=== PATIENT | male | born 1975 | race Caucasian/White ===

== ENCOUNTER 2020-12-21 14:58 | Outpatient (REF) | payer BC, SELFPAY ==
--- NOTE | ~2020-12-21 | XR_ITS ---
EXAMINATION: XR LUMBOSACRAL SPINE CLINICAL INFORMATION: Sciatica. COMPARISON: CT abdomen/pelvis dated 11/22/2018 TECHNIQUE: Three views of the lumbosacral spine. FINDINGS: Normal vertebral body alignment. The lumbar lordosis is maintained. No acute fracture or subluxation. No loss of vertebral body height. Mild loss of intervertebral disc height with small anterior endplate osteophytes at L5-S1. Mild bilateral facet arthropathy. Findings are slightly progressed when compared to the prior CT. No lytic or blastic osseous lesion. XR/XR lumbar spine 2-3V IMPRESSION: Degenerative disc disease at L5-S1 with bilateral facet arthropathy, slightly progressed when compared to the CT from 2019.
== END 2020-12-21 14:59 | disposition home or self-care (01) ==
LOC: HO.HMGCX 14:58
PROVIDERS: PCP Internal Medicine; Visit Provider Internal Medicine
DX: M54.30 Sciatica, unspecified side (principal)
CPT/HCPCS: 72100

== ENCOUNTER 2021-05-08 16:08 | Outpatient (REF) | payer BC, SELFPAY ==
--- NOTE | ~2021-05-08 | XR_ITS ---
EXAMINATION: XR FOOT, RIGHT CLINICAL INFORMATION: Pain right foot COMPARISON: None TECHNIQUE: AP, lateral, and oblique views of the right foot. FINDINGS: No radiographic evidence of acute fracture or subluxation. No radiopaque foreign body. No ankle joint effusion. Calcaneal spurs at the insertion of the Achilles tendon and plantar fascia. XR/XR foot RT min 3V IMPRESSION: Calcaneal spurs.
--- NOTE | ~2021-05-08 | XR_ITS ---
EXAMINATION: XR SHOULDER, LEFT CLINICAL INFORMATION: Pain COMPARISON: None TECHNIQUE: 3 views of the left shoulder. FINDINGS: No radiographic evidence of acute fracture or subluxation. Narrowing of the acromioclavicular joint. Tiny calcifications at the greater tuberosity. XR/XR shoulder LT min 2V IMPRESSION: 1. No radiographic evidence of acute fracture subluxation. 2. Tiny calcium density at the greater tuberosity suggests biceps tendinitis. 3. Mild degenerative change of acromioclavicular joint.
--- NOTE | ~2021-05-08 | XR_ITS ---
EXAMINATION: XR SHOULDER, RIGHT CLINICAL INFORMATION: Right shoulder pain COMPARISON: None TECHNIQUE: AP external rotation, Grashey, scapular Y, and axillary views of the right shoulder. FINDINGS: Narrowing of the acromioclavicular joint. No radiographic evidence of acute fracture or subluxation. Tiny calcification at the greater tuberosity. XR/XR shoulder RT min 2V IMPRESSION: 1. No radiographic evidence of acute fracture or subluxation. 2. Tiny calcium density at the greater tuberosity suggests biceps tendinitis. 3. Mild degenerative changes of the acromioclavicular joint.
== END 2021-05-08 16:09 | disposition home or self-care (01) ==
LOC: HO.HMGCX 16:08
PROVIDERS: PCP Internal Medicine; Visit Provider Internal Medicine
DX: M25.511 Pain in right shoulder (principal); M25.512 Pain in left shoulder; M79.671 Pain in right foot
CPT/HCPCS: 73030; 73630

== ENCOUNTER 2021-05-22 14:31 | Outpatient (REF) | payer BC, SELFPAY ==
--- NOTE | ~2021-05-22 | XR_ITS ---
EXAMINATION: XR CHEST CLINICAL INFORMATION: Acute bronchitis COMPARISON: Previous chest x-rays most recent November [address] January 2008 TECHNIQUE: 2 views of the chest were obtained. FINDINGS: The cardiac and mediastinal contours are normal. There is question of a central right upper lung nodule measuring 5 mm versus a vessel. This is seen in between the right posterior 6th and 7th ribs. The lungs are otherwise clear. There is no pleural effusion or pneumothorax. Bony structures are unremarkable. XR/XR chest 2V IMPRESSION: No evidence for acute disease in the chest. 5 mm nodular density in the central right upper lung, question representing a vessel versus a pulmonary nodule.
[2021-05-22 15:09] LABS: Binax Now Covid-19 Ag Positive (Negative)
[2021-05-22 15:10] LABS: Binax Internal Control QC Valid
== END 2021-05-22 14:32 | disposition home or self-care (01) ==
LOC: HO.HMGCX 14:31
PROVIDERS: PCP Internal Medicine; Visit Provider Internal Medicine
DX: J20.9 Acute bronchitis, unspecified (principal); J06.9 Acute upper respiratory infection, unspecified
CPT/HCPCS: 71046

== ENCOUNTER → 2021-07-04 14:55 | Outpatient (BNVA) | payer BC, SELFPAY | PROVIDERS: PCP Internal Medicine; Visit Provider Physician Assistant | DX: M75.21 Bicipital tendinitis, right shoulder (principal); M75.22 Bicipital tendinitis, left shoulder | CPT/HCPCS: 20610; 99212; J1040 ==

== ENCOUNTER 2021-11-01 07:32 | Outpatient (REF) | payer BC, SELFPAY ==
[2021-11-01 11:20] LABS: Hematocrit 39.1 % (42.0-52.0); Hemoglobin 13.6 g/dl (14.0-18.0); Mean Corpuscular HGB Conc 34.8 g/dl (31.0-36.0); Mean Corpuscular Hemoglobin 30.7 pg (27.0-33.0); Mean Corpuscular Volume 88.3 fL (80.0-98.0); Mean Platelet Volume 10.6 fL (9.4-12.4); Platelet Count 282 X10*3/uL (160-400); Red Blood Count 4.43 X10*6/uL (4.60-5.80); Red Cell Distribution Width 12.4 % (11.0-16.0); White Blood Count 6.9 X10*3/uL (4.8-10.8)
[2021-11-01 11:38] LABS: Alanine Aminotransferase 39 U/L (0-40); Albumin Level 4.5 g/dL (3.5-5.0); Alkaline Phosphatase 83 U/L (39-117); Anion Gap 12 (12-20); Aspartate Amino Transferase 25 U/L (5-37); Bilirubin Total 0.6 mg/dL (0.0-1.0); Blood Urea Nitrogen 14 mg/dL (9-16); Calcium 9.1 mg/dL (8.4-10.2); Carbon Dioxide 24 mmol/L (22-29); Chloride 107 mmol/L (96-108); Cholesterol 208 mg/dL; Estimated Glomerular Filt Rate 56; Glucose Fasting 119 mg/dL (60-99); HDL Cholesterol 41 mg/dL; LDL Cholesterol Calculated 139 mg/dl; Potassium 3.9 mmol/L (3.3-5.1); Sodium 139 mmol/L (135-145); Total Protein 7.3 g/dL (6.5-8.0); Triglycerides 144 mg/dL
[2021-11-01 12:02] LABS: Estimated Average Glucose 105 mg/dL; Hemoglobin A1c % 5.3 %
== END 2021-11-01 07:33 | disposition home or self-care (01) ==
LOC: HO.HMGCLDS 07:32
PROVIDERS: Visit Provider Internal Medicine
DX: Z00.00 Encounter for general adult medical examination without abnormal findings (principal); R73.01 Impaired fasting glucose
CPT/HCPCS: 36415; 80053; 80061; 83036; 85027

== ENCOUNTER 2021-11-19 20:27 | Emergency (ER) | payer BC, SELFPAY ==
--- NOTE | ~2021-11-19 | CT_ITS ---
EXAMINATION: CT ABDOMEN AND PELVIS WITHOUT CONTRAST CLINICAL INFORMATION: Abdominal pain, question diverticulitis COMPARISON: 11/22/2018 TECHNIQUE: Multidetector volumetric imaging was performed from the superior aspect of the liver through the pubic symphysis. Sagittal and coronal reformatted images were obtained on the technologist's workstation. This CT examination was performed using dose optimization techniques as appropriate, variously including the following: *Automated exposure control *Adjustment of mA and/or kV according to patient size (this includes techniques or standardized protocols for targeted exams where dose is matched to indication/reason for exam; i.e. extremities or head) *Use of iterative reconstruction technique DLP: 1162 mGy-cm FINDINGS: LUNG BASES: The visualized lung bases are unremarkable. LIVER, GALLBLADDER, AND BILIARY TREE: The liver is normal in size, shape, and attenuation. No focal hepatic lesion or biliary ductal dilatation is present. The gallbladder appears partially contracted. PANCREAS: Unremarkable. SPLEEN: Unremarkable. ADRENAL GLANDS: Unremarkable. KIDNEYS AND URETERS: The kidneys are normal in size, shape, and attenuation. No hydronephrosis, hydroureter, or calculi seen. BLADDER: Unremarkable. GASTROINTESTINAL TRACT: Small hiatal hernia is noted. No evidence of bowel obstruction. There is mild stranding adjacent to diverticula in the sigmoid colon of the central pelvis, suspicious for mild diverticulitis. No pericolonic abscess is identified. The appendix is unremarkable. No free fluid or free air is seen. ABDOMINAL WALL: No significant hernia is appreciated. LYMPH NODES: Normal. VASCULAR: There is mild scattered atherosclerotic calcification. PELVIC VISCERA: Unremarkable. OSSEOUS STRUCTURES: Degenerative changes are noted in the lower thoracic spine. CT/CT abdomen pelvis wo con IMPRESSION: Mild sigmoid colon diverticulitis. No pericolonic abscess or free air identified.
[2021-11-19 22:04] VITALS: BP 108/87; PULSE 83; RESP 20; TEMP 37.1; O2SAT 97; BMI 41.4
[2021-11-19] MEDS: Ondansetron ODT 4 MG TAB.RAPDIS TRANSLINGU (22:08)
[2021-11-19 22:38] LABS: MANUAL DIFF FLAG NO
[2021-11-19 22:40] LABS: Basophils Absolute Auto 0.1 X10*3/uL (0.0-0.2); Basophils Percent Auto 0.8 % (0-2); Eosinophils Absolute Auto 0.3 X10*3/uL (0.0-0.4); Eosinophils Percent Auto 2.9 % (0-4); Hematocrit 39.2 % (42.0-52.0); Hemoglobin 13.9 g/dl (14.0-18.0); Imm Gran Abs Auto 0.05 X10*3/uL (0.00-0.03); Imm Gran Pct Auto 0.5 % (0.0-0.4); Lymphocytes Absolute Auto 2.7 X10*3/uL (1.2-4.9); Lymphocytes Percent Auto 24.1 % (20-40); Mean Corpuscular HGB Conc 35.5 g/dl (31.0-36.0); Mean Corpuscular Hemoglobin 30.5 pg (27.0-33.0); Mean Platelet Volume 9.5 fL (9.4-12.4); Monocytes Percent Auto 8.6 % (2-11); Neutrophils Percent Auto 63.1 % (45-73); Platelet Count 270 X10*3/uL (160-400); Red Blood Count 4.56 X10*6/uL (4.60-5.80); Red Cell Distribution Width 12.4 % (11.0-16.0); White Blood Count 11.1 X10*3/uL (4.8-10.8)
[2021-11-19 22:55] LABS: Alanine Aminotransferase 40 U/L (0-40); Albumin Level 4.6 g/dL (3.5-5.0); Alkaline Phosphatase 87 U/L (39-117); Anion Gap 12 (12-20); Aspartate Amino Transferase 29 U/L (5-37); Bilirubin Total 0.7 mg/dL (0.0-1.0); Blood Urea Nitrogen 10 mg/dL (9-16); Calcium 9.7 mg/dL (8.4-10.2); Carbon Dioxide 29 mmol/L (22-29); Chloride 103 mmol/L (96-108); Creatinine Clr Calc Pharmacy 88.7; Estimated Glomerular Filt Rate 54; Glucose Random 106 mg/dL (60-115); Potassium 4.2 mmol/L (3.3-5.1); Sodium 140 mmol/L (135-145); Total Protein 7.4 g/dL (6.5-8.0)
[2021-11-20 01:25] LABS: Appearance Urine CLEAR; Color Urine YELLOW; Glucose Urine UA NEG (NEG); Leukocyte Esterase Urine NEG (NEG); Nitrite Urine NEG (NEG); PH 6.5 (5.0-8.0); Urine Blood NEG (NEG); Urine Ketones NEG (NEG); Urine Protein NEG (NEG-TRACE)
--- NOTE | 2021-11-20 02:05 | ED.ABDPAIN ---
HPI - Abdominal Pain General Chief Complaint: Abdominal Pain Stated Complaint: diverticulitis attack Time Seen by Provider: 11/20/21 00:36 Source: patient Mode of arrival: ambulatory Limitations: no limitations History of Present Illness HPI narrative: 46-year-old male came in for evaluation of abdominal pain. Abdominal pain started 1 day ago, pain is localized to the left lower quadrant area, feels like heaviness in the rectum area, feels the urge of micturition without being able to go. Pain described as cramps that is intermittent, last for about few minutes then go away, with no radiation, pain is associated with nausea, no fever or chills. No relieving factor, no aggravating factors. Patient had similar pain in the past when he had an episode of acute diverticulitis. Past surgical history is significant for hernia repair he when he was 6-month-old. Related Data Previous Rx's Medication Instructions Recorded albuterol sulfate 90 mcg/actuation 2 puff inhalation Q6H PRN 11/05/21 aerosol inhaler shortness of breath or wheezing #8.5 grams mometasone-formoterol HFA 200 2 puff inhalation BID #8.8 grams 11/05/21 mcg-5 mcg/actuation aerosol inhaler (Dulera) ciprofloxacin HCl 500 mg tablet 500 mg PO BID #20 tabs 11/20/21 (Cipro) ibuprofen 800 mg tablet 800 mg PO Q8H PRN pain #20 tabs 11/20/21 metronidazole 500 mg tablet 500 mg PO BID 10 days #20 tabs 11/20/21 Allergies Allergy/AdvReac Type Severity Reaction Status Date / Time levofloxacin [From LEVAQUIN] Allergy Intermediate NERVE PAIN Verified 11/19/21 22:03 Review of Systems Review of Systems All other systems are reviewed and are negative Constitutional: Reports as per HPI and Reports no additional constitutional complaints Eyes: Reports as per HPI and Reports no additional eye complaints Reports system reviewed and no additional complaints, except as documented Cardiovascular: Reports as per HPI and Reports no additional cardiovascular complaints Respiratory: Reports as per HPI and Reports no additional respiratory complaints Gastrointestinal: Reports as per HPI and Reports no additional gastrointestinal complaints Genitourinary: Reports no additional female genitourinary complaints Musculoskeletal: Reports no additional musculoskeletal complaints Skin/Breast: Reports system reviewed and no additional complaints, except as docu Psychiatric: Reports no additional psychiatric complaints Endocrine: Reports no additional endocrine complaints Hematologic/Lymphatic: Reports no additional hematologic/lymphatic complaints Allergic/Immunologic: Reports no additional allergic/immunologic complaints Reports system reviewed and no additional complaints, except as documented and Reports Abnormal speech present [facility] Past Medical History Medical History Annual physical exam Impaired fasting blood sugar Obesity Vasectomy evaluation Surgical History No pertinent past surgical history Family History Family History Father HTN (hypertension) Mother No problems noted. Other Substance use disorder Social History Social History Housing: House Patient Tobacco Use Status: Former Tobacco user Quit Date: 20 plus years ago Years Smoked: 2 e-Cigarette/Vaping Use: Never Used Advance Directives: No Advance Directives Information Provided: No Current occupational status: employed Cognitive needs: No Hearing needs: No Vision needs: Yes Physical Exam ED Vital Signs: Vital Signs - 24 hr 11/19/21 22:04 Temperature 98.7 F Pulse Rate 83 Respiratory Rate 20 Blood Pressure 108/87 Pulse Oximetry 97 Oxygen Delivery Method Room Air BMI result Body Mass Index 41.4 Vital signs have been reviewed as appeared to be correct. Blood pressure normal. Heart rate normal. Respiration rate normal. Temperature normal. Oxygen saturation normal. Appearance: Alert. Oriented X3. No acute distress. Head: Normal external exam. Normocephalic. Atraumatic. No Damian signs noted. No raccoon eyes noted Eyes: PERRLA. EOMI. Conjunctiva and sclera normal. Eyelids normal. ENT: TM's Normal. Pharynx normal. Uvula midline. Moist mucous membranes. No trismus noted. No drooling noted. No muffled voice noted. Neck: Normal inspection. Neck supple. FROM. No adenopathy. Thyroid Normal. No meningeal signs. No neck mass noted. CVS: Normal heart rate and rhythm. Heart sound normal. No murmurs noted. Pulses normal throughout. Respiratory: No respiratory distress. Painless inspiration. Breath sounds normal. No wheezes/rales/rhonchi noted. Chest nontender. No accessory muscle usage noted or decreased air movement noted. Abdomen: Soft, mild left lower quadrant tenderness, no rebound tenderness, no guarding.. Bowel sounds normal in all 4 quadrants. No distention noted. No organomegaly noted. No visible injury noted. Back: No CVA tenderness. Full range of motion noted. Skin: Skin warm and dry. Normal skin color. Normal skin turgor. No rashes/lesions/lacerations noted. Extremities: No lower extremity edema. Extremities exhibit normal range of motion. Extremities nontender. Neuro: Oriented X 3. Cranial nerve exam: II-XII are grossly intact No motor deficit. No sensory deficit. Reflexes normal. Course Course Course Narrative: 46 years old male with history of diverticular disease came in with left lower quadrant tenderness, physical exam/CT consistent with simple noncomplicated acute diverticulitis. Will discharge the patient on Cipro/Flagyl/NSAIDs/follow-up with boilers inspector for possible outpatient endoscopy/with instructions to return if symptoms is worsening. MDM - Abdominal Pain Medical Records Attestation: I reviewed the patient's medical records. Lab Data Attestation: I reviewed the patient's lab results. Result diagrams: 11/19/21 22:30 11/19/21 22:30 Labs: Lab Results 11/19/21 11/19/21 11/20/21 Range/Units 22:30 22:30 01:18 WBC 11.1 H (4.8-10.8) X10*3/uL RBC 4.56 L (4.60-5.80) X10*6/uL Hgb 13.9 L (14.0-18.0) g/dl Hct 39.2 L (42.0-52.0) % MCV 86.0 (80.0-98.0) fL MCH 30.5 (27.0-33.0) pg MCHC 35.5 (31.0-36.0) g/dl RDW 12.4 (11.0-16.0) % Plt Count 270 (160-400) X10*3/uL MPV 9.5 (9.4-12.4) fL Immature Gran % (Auto) 0.5 H (0.0-0.4) % Neut % (Auto) 63.1 (45-73) % Lymph % (Auto) 24.1 (20-40) % [place] % (Auto) 8.6 (2-11) % Eos % (Auto) 2.9 (0-4) % Baso % (Auto) 0.8 (0-2) % Lymph # (Auto) 2.7 (1.2-4.9) X10*3/uL [place] # (Auto) 1.0 (0.1-1.2) X10*3/uL Eos # (Auto) 0.3 (0.0-0.4) X10*3/uL Baso # (Auto) 0.1 (0.0-0.2) X10*3/uL Abs Immat Gran (auto) 0.05 H (0.00-0.03) X10*3/uL Absolute Neuts (auto) 7.0 (2.0-8.3) x10*3/uL Absolute Nucleated RBC 0.000 (0.0-0.012) X10*3/uL Nucleated RBC % (auto) 0.0 (0.0-0.2) /100WBC Sodium 140 (135-145) mmol/L Potassium 4.2 (3.3-5.1) mmol/L Chloride 103 (96-108) mmol/L Carbon Dioxide 29 (22-29) mmol/L Anion Gap 12 (12-20) BUN 10 (9-16) mg/dL Creatinine 1.40 (0.5-1.4) mg/dL Estim Creat Clear Calc 88.7 Estimated GFR 54 Random Glucose 106 (60-115) mg/dL Calcium 9.7 D (8.4-10.2) mg/dL Total Bilirubin 0.7 (0.0-1.0) mg/dL AST 29 (5-37) U/L ALT 40 (0-40) U/L Alkaline Phosphatase 87 (39-117) U/L Total Protein 7.4 (6.5-8.0) g/dL Albumin 4.6 (3.5-5.0) g/dL Urine Color YELLOW Urine Appearance CLEAR Urine pH 6.5 (5.0-8.0) Ur Specific [place] 1.020 (1.005-1.025) Urine Protein NEG (NEG-TRACE) MG/DL Urine Glucose (UA) NEG (NEG) MG/DL Urine Ketones NEG (NEG) MG/DL Urine Blood NEG (NEG) Urine Nitrite NEG (NEG) Ur Leukocyte Esterase NEG (NEG) Imaging Data Abdomen and pelvis CT: Attestation: I personally reviewed and interpreted this imaging study as follows: Radiologist's impression: Mild sigmoid colon diverticulitis. No pericolonic abscess or free air identified.? Discharge Plan Discharge Clinical Impression: Diverticulitis Patient Disposition: Home, Self-Care Instructions: Diverticulitis (ED), Diverticulitis Diet (ED) Prescriptions: New ciprofloxacin HCl [Cipro] 500 mg tablet 500 mg PO BID Qty: 20 0RF metronidazole 500 mg tablet 500 mg PO BID 10 Days Qty: 20 0RF ibuprofen 800 mg tablet 800 mg PO Q8H PRN (Reason: pain) Qty: 20 0RF No Action Dulera 200-5 mcg/actuation HFA aerosol inhaler 2 puff inhalation BID Qty: 8.8 4RF albuterol sulfate 90 mcg/actuation HFA aerosol inhaler 2 puff inhalation Q6H PRN (Reason: shortness of breath or wheezing) Qty: 8.5 3RF Referrals: Payton Sanz MD [Physician] -
[2021-11-20] MEDS: Ibuprofen 800 MG TABLET PO (02:36)
[2021-11-20] MEDS: Ondansetron ODT 4 MG TAB.RAPDIS TRANSLINGU (02:36)
[2021-11-20] MEDS: metroNIDAZOLE 500 MG TABLET PO (02:37)
--- NOTE | 2021-11-20 02:38 | PC.NURSE ---
medicated per provider order.
== END 2021-11-20 02:41 | disposition home or self-care (01) ==
PROVIDERS: Emergency Provider Emergency Medicine
DX: K57.32 Diverticulitis of large intestine without perforation or abscess without bleeding (principal); E66.9 Obesity, unspecified; Z68.41 Body mass index [BMI] 40.0-44.9, adult; Z87.891 Personal history of nicotine dependence
CPT/HCPCS: 36415; 74176; 80053; 81003; 85025; 99283; 99284

== ENCOUNTER 2022-02-18 03:36 | Emergency (ER) | payer BC, SELFPAY ==
[2022-02-18 03:49] VITALS: BP 135/88; PULSE 93; RESP 16; TEMP 36.3; O2SAT 97; BMI 40.1
[2022-02-18 04:07] LABS: MANUAL DIFF FLAG NO
[2022-02-18 04:12] LABS: Basophils Absolute Auto 0.1 X10*3/uL (0.0-0.2); Basophils Percent Auto 0.8 % (0-2); Eosinophils Absolute Auto 0.3 X10*3/uL (0.0-0.4); Eosinophils Percent Auto 3.3 % (0-4); Hematocrit 38.8 % (42.0-52.0); Hemoglobin 13.9 g/dl (14.0-18.0); Imm Gran Abs Auto 0.07 X10*3/uL (0.00-0.03); Imm Gran Pct Auto 0.7 % (0.0-0.4); Lymphocytes Absolute Auto 2.4 X10*3/uL (1.2-4.9); Lymphocytes Percent Auto 24.8 % (20-40); Mean Corpuscular HGB Conc 35.8 g/dl (31.0-36.0); Mean Corpuscular Hemoglobin 31.4 pg (27.0-33.0); Mean Corpuscular Volume 87.6 fL (80.0-98.0); Mean Platelet Volume 9.5 fL (9.4-12.4); Monocytes Percent Auto 10.2 % (2-11); Neutrophils Absolute Auto 5.9 x10*3/uL (2.0-8.3); Neutrophils Percent Auto 60.2 % (45-73); Platelet Count 285 X10*3/uL (160-400); Red Blood Count 4.43 X10*6/uL (4.60-5.80); Red Cell Distribution Width 12.3 % (11.0-16.0); White Blood Count 9.7 X10*3/uL (4.8-10.8)
[2022-02-18 04:26] LABS: Anion Gap 17 (12-20); Blood Urea Nitrogen 11 mg/dL (9-16); Calcium 9.3 mg/dL (8.4-10.2); Carbon Dioxide 24 mmol/L (22-29); Chloride 104 mmol/L (96-108); Creatinine Clr Calc Pharmacy 92.2; Estimated Glomerular Filt Rate 58; Glucose Random 124 mg/dL (60-115); Potassium 4.4 mmol/L (3.3-5.1); Sodium 141 mmol/L (135-145)
[2022-02-18 04:34] LABS: Appearance Urine Clear; Color Urine Yellow; Glucose Urine UA Negative (Negative); Leukocyte Esterase Urine Negative (Negative); Nitrite Urine Negative (Negative); PH 5.5 (5.0-9.0); Urine Blood Negative (Negative); Urine Ketones Negative (Negative); Urine Protein Negative (Neg-Trace)
[2022-02-18 06:48] VITALS: BP 121/80; PULSE 85; RESP 16; TEMP 36.8; O2SAT 94
--- NOTE | 2022-02-18 06:48 | PC.NURSE ---
Pt. on hall monitor at this time. Awaiting MD assessment.
[2022-02-18 07:39] VITALS: BP 121/69; PULSE 80; RESP 16; TEMP 36.8; O2SAT 97
--- NOTE | 2022-02-18 07:48 | PC.NURSE ---
pt is a/o x 4 no sob/rony noted speaks in full sentences. lungs - bud upper lobes - diminished, bud lower lobes - cta. heart sounds regular, abd obese soft, non-tender, c/o 8/10 rlq abd pain. no edema noted to lower ext. pt aware of plan.
--- NOTE | 2022-02-18 08:05 | ED.ABDPAIN ---
HPI - Abdominal Pain General Chief Complaint: Abdominal Pain Stated Complaint: Diverticulitis flare up Time Seen by Provider: 02/18/22 07:50 Source: patient and family Mode of arrival: ambulatory History of Present Illness HPI narrative: 47-year-old male with a past medical history of diverticulitis presents to the emergency department today with abdominal pain. The patient states this started last night, and has become more severe over the last 12-18 hours. It is located mostly in the left lower quadrant, with minimal radiation to the suprapubic area at times. MD elicited complaint: abdominal pain Pertinent past history: diverticulitis Onset (ago): day(s) (1) Pain Consistency: constant Location: LLQ Severity: moderate Quality: cramping and aching Radiation: suprapubic Migration to: no migration Exacerbating factors: nothing Relieving factors: nothing Context: history of similar episodes Associated symptoms: constipation Related Data Previous Rx's Medication Instructions Recorded albuterol sulfate 90 mcg/actuation 2 puff inhalation Q6H PRN 11/05/21 aerosol inhaler shortness of breath or wheezing #8.5 grams mometasone-formoterol HFA 200 2 puff inhalation BID #8.8 grams 11/05/21 mcg-5 mcg/actuation aerosol inhaler (Dulera) ciprofloxacin HCl 500 mg tablet 500 mg PO BID #20 tabs 11/20/21 (Cipro) ibuprofen 800 mg tablet 800 mg PO Q8H PRN pain #20 tabs 11/20/21 metronidazole 500 mg tablet 500 mg PO BID 10 days #20 tabs 11/20/21 amoxicillin 500 mg-potassium 1 tab PO Q12H 10 days #20 tabs 02/18/22 clavulanate 125 mg tablet (Augmentin) oxycodone-acetaminophen 5 mg-325 1 - 2 tab PO Q4H PRN abdominal 02/18/22 mg tablet (Endocet) pain #10 tabs Allergies Allergy/AdvReac Type Severity Reaction Status Date / Time levofloxacin [From LEVAQUIN] Allergy Intermediate NERVE PAIN Verified 11/19/21 22:03 Review of Systems Review of Systems Yes all other systems are reviewed and are negative Constitutional: Reports chills, Denies fatigue, Denies fever(s) and Denies weakness Eyes: Reports no additional eye complaints Reports system reviewed and no additional complaints, except as documented and Denies dizziness Cardiovascular: Reports no additional cardiovascular complaints Respiratory: Reports no additional respiratory complaints Gastrointestinal: Reports abdominal pain, Denies melena, Reports constipation, Reports GI cramping, Denies diarrhea, Denies nausea and Denies vomiting Genitourinary: Denies hematuria, Denies oliguria and Denies dysuria Musculoskeletal: Reports no additional musculoskeletal complaints Skin/Breast: Reports system reviewed and no additional complaints, except as docu Denies confusion, Denies dizziness and Denies weakness Psychiatric: Reports no additional psychiatric complaints and Denies confusion Endocrine: Denies fatigue and Denies polyuria Hematologic/Lymphatic: Reports no additional hematologic/lymphatic complaints COUNTS INCLUDE 234 BEDS AT THE [facility] Past Medical History Attestation statement: The following information was validated with the patient. Source: nursing notes reviewed Medical History Annual physical exam Impaired fasting blood sugar Obesity Vasectomy evaluation Surgical History No pertinent past surgical history Family History Family History Father HTN (hypertension) Mother No problems noted. Other Substance use disorder Social History Social History Housing: House Alcohol intake: current Alcohol intake frequency: holidays/special occasions only Patient Tobacco Use Status: Former Tobacco user Quit Date: 20 plus years ago Years Smoked: 2 e-Cigarette/Vaping Use: Never Used Use of substances other than those prescribed or required for medical reasons: No Advance Directives: No Advance Directives Information Provided: Yes Current occupational status: employed Cognitive needs: No Hearing needs: No Vision needs: Yes Physical Exam ED Vital Signs: Vital Signs - 24 hr 02/18/22 03:49 02/18/22 06:48 02/18/22 07:39 Temperature 97.4 F 98.2 F 98.3 F Pulse Rate 93 85 80 Respiratory Rate 16 16 16 Blood Pressure 135/88 121/80 121/69 Pulse Oximetry 97 94 97 Oxygen Delivery Method Room Air Room Air Room Air 02/18/22 09:41 Temperature 98.6 F Pulse Rate 83 Respiratory Rate 20 Blood Pressure 121/72 Pulse Oximetry 97 Oxygen Delivery Method Room Air BMI result Body Mass Index 40.1 Const General: cooperative and in distress; No confusion or ill appearing Nutritional Appearance: obese Orientation/consciousness: patient oriented x3 and No confusion HENMT Head: Yes normal to inspection Ears: hearing grossly normal bilaterally General nose exam: Normal external nose present Face and sinus: Yes normal facial exam Mouth: Normal oral and palatal mucosa present Eyes Sclerae: sclerae normal Corneas: corneas normal Pupils: Equal, round and reactive pupils present Neck Neck: Yes normal visual inspection and Yes full ROM Chest Chest palpation & inspection: normal inspection of the chest and no tenderness Resp Effort & Inspection: normal respiratory effort, no cough and no respiratory distress Cardio Rate: regular rate Rhythm: regular rhythm GI Inspection: Yes obesity Palpation (GI): Soft to palpation and Tenderness to palpation present (GI) Percussion: Yes normal to percussion Auscultation: normal bowel sounds General: Yes no CVA tenderness Back/Spine/Pelvis Back: no CVA tenderness Cervical Spine: cervical ROM normal Skin General skin exam: no rashes or lesions noted and no jaundice Neuro General: patient oriented x3, no focal motor deficits and No confusion Cranial nerves: Yes CN's II-XII intact bilaterally and Yes Equal, round and reactive pupils present Extrem General: Yes normal to inspection and No pedal edema Psych Appearance: grossly normal Mental Status: mental status grossly normal Speech and movement: Normal speech and movement present Course Reevaluation(s) Reevaluation #1: Patient appears comfortable. States pain is significantly improved, but still present Time: 11:00 MDM - Abdominal Pain MDM Narrative Medical decision making narrative: Discussed CT versus not CT with the patient. Expressed concern over the fact that the patient has had multiple CT scans in the past. Will obtain laboratory studies and re-evaluation. If patient's labs and course are suspicious for perforation, may obtain CT Patient remains comfortable, does continue to complain about some mild abdominal pain. Laboratory studies were all reviewed, and there is no significant elevation of white count, or other lab abnormality. Vital signs remained stable and patient remains afebrile. For these reasons, and the fact that the patient states he has had 6-8 CT scans previously for this problem, CT scan of the abdomen will not be obtained at this time. The patient states that typically he is started on antibiotics and after a day or 2, begins to feel better. He will be discharged home on Augmentin and is instructed to follow-up with his primary care doctor tomorrow. Differential Diagnosis Differential diagnosis: Likely abdominal pain, acute appendicitis, bowel perforation and diverticulitis Medical Records Attestation: I reviewed the patient's medical records. Lab Data Attestation: I reviewed the patient's lab results. Lab results narrative: No significant lab abnormalities Result diagrams: 02/18/22 03:57 02/18/22 03:57 Labs: Lab Results 02/18/22 02/18/22 02/18/22 Range/Units 03:57 03:57 04:24 WBC 9.7 (4.8-10.8) X10*3/uL RBC 4.43 L (4.60-5.80) X10*6/uL Hgb 13.9 L (14.0-18.0) g/dl Hct 38.8 L (42.0-52.0) % MCV 87.6 (80.0-98.0) fL MCH 31.4 (27.0-33.0) pg MCHC 35.8 (31.0-36.0) g/dl RDW 12.3 (11.0-16.0) % Plt Count 285 (160-400) X10*3/uL MPV 9.5 (9.4-12.4) fL Immature Gran % (Auto) 0.7 H (0.0-0.4) % Neut % (Auto) 60.2 (45-73) % Lymph % (Auto) 24.8 (20-40) % Wilson % (Auto) 10.2 (2-11) % Eos % (Auto) 3.3 (0-4) % Baso % (Auto) 0.8 (0-2) % Lymph # (Auto) 2.4 (1.2-4.9) X10*3/uL Wilson # (Auto) 1.0 (0.1-1.2) X10*3/uL Eos # (Auto) 0.3 (0.0-0.4) X10*3/uL Baso # (Auto) 0.1 (0.0-0.2) X10*3/uL Abs Immat Gran (auto) 0.07 H (0.00-0.03) X10*3/uL Absolute Neuts (auto) 5.9 (2.0-8.3) x10*3/uL Absolute Nucleated RBC 0.000 (0.0-0.012) X10*3/uL Nucleated RBC % (auto) 0.0 (0.0-0.2) /100WBC Sodium 141 (135-145) mmol/L Potassium 4.4 (3.3-5.1) mmol/L Chloride 104 (96-108) mmol/L Carbon Dioxide 24 (22-29) mmol/L Anion Gap 17 (12-20) BUN 11 (9-16) mg/dL Creatinine 1.31 (0.5-1.4) mg/dL Estim Creat Clear Calc 92.2 Estimated GFR 58 Random Glucose 124 H (60-115) mg/dL Calcium 9.3 (8.4-10.2) mg/dL Total Bilirubin (0.0-1.0) mg/dL Direct Bilirubin (0.0-0.5) mg/dL AST (5-37) U/L ALT (0-40) U/L Alkaline Phosphatase (39-117) U/L Total Protein (6.5-8.0) g/dL Albumin (3.5-5.0) g/dL Urine Color Yellow Urine Appearance Clear Urine pH 5.5 (5.0-9.0) Ur Specific Coulters 1.020 (1.005-1.025) Urine Protein Negative (Neg-Trace) mg/dL Urine Glucose (UA) Negative (Negative) mg/dL Urine Ketones Negative (Negative) mg/dL Urine Blood Negative (Negative) Urine Nitrite Negative (Negative) Ur Leukocyte Esterase Negative (Negative) 02/18/22 Range/Units 08:56 WBC (4.8-10.8) X10*3/uL RBC (4.60-5.80) X10*6/uL Hgb (14.0-18.0) g/dl Hct (42.0-52.0) % MCV (80.0-98.0) fL MCH (27.0-33.0) pg MCHC (31.0-36.0) g/dl RDW (11.0-16.0) % Plt Count (160-400) X10*3/uL MPV (9.4-12.4) fL Immature Gran % (Auto) (0.0-0.4) % Neut % (Auto) (45-73) % Lymph % (Auto) (20-40) % Wilson % (Auto) (2-11) % Eos % (Auto) (0-4) % Baso % (Auto) (0-2) % Lymph # (Auto) (1.2-4.9) X10*3/uL Wilson # (Auto) (0.1-1.2) X10*3/uL Eos # (Auto) (0.0-0.4) X10*3/uL Baso # (Auto) (0.0-0.2) X10*3/uL Abs Immat Gran (auto) (0.00-0.03) X10*3/uL Absolute Neuts (auto) (2.0-8.3) x10*3/uL Absolute Nucleated RBC (0.0-0.012) X10*3/uL Nucleated RBC % (auto) (0.0-0.2) /100WBC Sodium (135-145) mmol/L Potassium (3.3-5.1) mmol/L Chloride (96-108) mmol/L Carbon Dioxide (22-29) mmol/L Anion Gap (12-20) BUN (9-16) mg/dL Creatinine (0.5-1.4) mg/dL Estim Creat Clear Calc Estimated GFR Random Glucose (60-115) mg/dL Calcium (8.4-10.2) mg/dL Total Bilirubin 0.7 (0.0-1.0) mg/dL Direct Bilirubin 0.2 (0.0-0.5) mg/dL AST 21 (5-37) U/L ALT 32 (0-40) U/L Alkaline Phosphatase 78 (39-117) U/L Total Protein 6.9 (6.5-8.0) g/dL Albumin 4.3 (3.5-5.0) g/dL Urine Color Urine Appearance Urine pH (5.0-9.0) Ur Specific Coulters (1.005-1.025) Urine Protein (Neg-Trace) mg/dL Urine Glucose (UA) (Negative) mg/dL Urine Ketones (Negative) mg/dL Urine Blood (Negative) Urine Nitrite (Negative) Ur Leukocyte Esterase (Negative) Discharge Plan Discharge Clinical Impression: Diverticulitis, Abdominal pain Patient Disposition: Home, Self-Care Instructions: Diverticulitis (ED) Prescriptions: New amoxicillin-pot clavulanate [Augmentin] 500-125 mg tablet 1 tab PO Q12H 10 Days Qty: 20 0RF oxycodone-acetaminophen [Endocet] 5-325 mg tablet 1 - 2 tab PO Q4H PRN (Reason: abdominal pain) Qty: 10 0RF Rx Instructions: Partial Fill upon patient request. No Action ciprofloxacin HCl [Cipro] 500 mg tablet 500 mg PO BID Qty: 20 0RF metronidazole 500 mg tablet 500 mg PO BID 10 Days Qty: 20 0RF ibuprofen 800 mg tablet 800 mg PO Q8H PRN (Reason: pain) Qty: 20 0RF Dulera 200-5 mcg/actuation HFA aerosol inhaler 2 puff inhalation BID Qty: 8.8 4RF albuterol sulfate 90 mcg/actuation HFA aerosol inhaler 2 puff inhalation Q6H PRN (Reason: shortness of breath or wheezing) Qty: 8.5 3RF Referrals: Heidi Galindo MD [Primary Care Provider] - 1 day
[2022-02-18] MEDS: Morphine Sulfate 4 MG/ML CARTRIDGE IVPUSH ×2 (09:14→13:25)
[2022-02-18] MEDS: Ampicillin Sodium/Sulbactam Na 3 GM in 0.9 % Sodium Chloride 100 ML IV (09:15)
[2022-02-18 09:28] LABS: Alanine Aminotransferase 32 U/L (0-40); Albumin Level 4.3 g/dL (3.5-5.0); Alkaline Phosphatase 78 U/L (39-117); Aspartate Amino Transferase 21 U/L (5-37); Bilirubin Direct 0.2 mg/dL (0.0-0.5); Bilirubin Total 0.7 mg/dL (0.0-1.0); Total Protein 6.9 g/dL (6.5-8.0)
[2022-02-18 09:41] VITALS: BP 121/72; PULSE 83; RESP 20; TEMP 37; O2SAT 97
[2022-02-18 12:34] VITALS: BP 126/68; PULSE 85; RESP 16; TEMP 36.7; O2SAT 96
[2022-02-18 13:55] VITALS: BP 129/72; PULSE 85; RESP 18; O2SAT 97
== END 2022-02-18 13:58 | disposition home or self-care (01) ==
PROVIDERS: Emergency Provider Emergency Medicine; PCP Internal Medicine
DX: K57.32 Diverticulitis of large intestine without perforation or abscess without bleeding (principal); R10.32 Left lower quadrant pain; Z79.899 Other long term (current) drug therapy; Z87.891 Personal history of nicotine dependence
CPT/HCPCS: 36415; 80048; 80076; 81003; 85025; 96365; 96375; 96376; 99284; 99285; J0295; J2270

== ENCOUNTER 2023-03-11 12:42 | Outpatient (AMB) | payer BC, SELFPAY ==
[2023-03-11 12:47] VITALS: BP 120/80; PULSE 81; O2SAT 98; BMI 40.6
--- NOTE | 2023-03-11 12:47 | A.OFFPC_ITS ---
Vital Signs 03/11/23 12:47 Height 5 ft 10 in Weight 283 lb BMI 40.6 BP 120/80 Blood Pressure Location Lt brachial Position Sitting Pulse 81 Pulse Source Pulse Oximeter Pulse Oximetry (%) 98 Oxygen Delivery Method Room Air Intake Visit Reasons: discuss medical issues Intake Note: Pt is here today for a follow up visit.Pt states that he cant sleep, and has a lot anxiety. Pt also c/o a lot of phlegm and congestion. Allergies levofloxacin [From LEVAQUIN] Allergy (Intermediate, Verified 03/11/23 12:53) NERVE PAIN Medication List - Last Reconciled 03/11/23 by Heidi Galindo MD albuterol sulfate 90 mcg/actuation 2 puffs inhalation Q6H PRN mometasone-formoterol 200-5 mcg/actuation (Dulera) 2 puffs inhalation BID tiotropium bromide 1.25 mcg/actuation (Spiriva Respimat) 2 puffs inhalation DAILY Tobacco use date assessed: 03/11/23 Dental Screening Dental Screen Date: 03/11/23 Did you have a dental visit in the last 12 months?: Yes Did you have a dental problem in the last 6 months where you did not have access to dental care?: No Was dental information given to patient?: Patient has dentist HPI discuss medical issues HPI Details Pt presents for PE. Pt is grieving her mother who in December from renal failure and infected leg ulcers at 65. Patient has been crying a lot and reports worsening of his asthma increase chest tightness and postnasal drip coughing up white phlegm for the last few weeks. Patient has been using albuterol inhaler up to 4 times a day with some relief in addition to Spiriva and Dulera. He denies seasonal allergies in the fall. [facility] Medical History Annual physical exam Impaired fasting blood sugar Obesity Vasectomy evaluation Surgical History No pertinent past surgical history Family History Father HTN (hypertension) Mother No problems noted. Other Substance use disorder Social History Housing: House Alcohol intake: current Alcohol intake frequency: holidays/special occasions only Patient Tobacco Use Status: Former Tobacco user Quit Date: 20 plus years ago Years Smoked: 2 e-Cigarette/Vaping Use: Never Used Current occupational status: employed Cognitive needs: No Hearing needs: No Vision needs: Yes Questionnaire PHQ-9 Over the last 2 weeks, how often have you been bothered by any of the following problems? 1. Little interest or pleasure in doing things: nearly every day 2. Feeling down, depressed, or hopeless: more than half the days 3. Trouble falling or staying asleep, or sleeping too much: nearly every day 4. Feeling tired or having little energy: more than half the days 5. Poor appetite or overeating: more than half the days 6. Feeling bad about yourself - or that you are a failure or have let yourself or your family down: several days 7. Trouble concentrating on things, such as reading the newspaper or watching television: more than half the days 8. Moving or speaking so slowly that other people could have noticed. Or the opposite - being so fidgety or restless that you have been moving around a lot more than usual: not at all 9. Thoughts that you would be better off or of hurting yourself in some way: not at all Total score: 15 Depression Screening Interpretation: Positive Depression Screening Done: Yes Source: Developed by Drs. Devonte Michel, Cari Clement, Troy Ram and colleagues, with an educational melanie from [employer] Thrive Questionnaire Date Thrive assessed: 03/11/23 I am a: Patient What is your living situation today?: I have a steady place to live Within the past 12 months, did the food you bought not last and you didn't have the money to get more?: Never true Within the past 12 months, did you worry whether your food would run out before you got money to buy more?: Never true Do you have trouble paying for medicines?: No Do you have trouble getting transportation to medical appointments?: No Do you have trouble paying your heating and electricity bill?: No Do you have trouble taking care of your child, family member or friend?: No Do you have trouble with day-to-day activities such as bathing, preparing meals, shopping, managing finances, etc.?: No Are you currently unemployed and looking for a job?: No Are you interested in more education?: No Please select the resources that you would like help with: None AUDIT C Alcohol Use Questionnaire (AUDIT-C) 1. How often do you have a drink containing alcohol?: 2-3 times a week 2. How many drinks containing alcohol do you have on a typical day when you are drinking?: 1 or 2 3. How often do you have six or more drinks on one occasion?: Never Total Score: 3 NIDIA-7 AMB Questionnaire NIDIA-7 Date NIDIA - 7 assessed: 03/11/23 Feeling nervous, anxious, or on edge: 3 = Nearly every day Not being able to stop or control worryin = More than half the days Worrying too much about different things: 2 = More than half the days Trouble relaxin = Nearly every day Being so restless that it is hard to sit still: 2 = More than half the days Becoming easily annoyed or irritable: 3 = Nearly every day Feeling afraid as if something awful might happen: 3 = Nearly every day Total NIDIA-7 score (0-4 normal; 5-9 mild; 10-14 moderate; 15-21 severe): 18 Source: Developed by Drs. Devonte Michel, Cari Clement, Troy Ram and colleagues, with an educational melanie from [employer] Review of Systems Const All systems reviewed & are unremarkable except as noted in HPI and below Reports no additional complaints Eyes Reports no additional complaints ENT Reports no additional complaints Card Reports no additional complaints Resp Reports no additional complaints GI Reports no additional complaints Reports no additional complaints Physical exam (Primary Care) Vital Signs: Last Vital Signs Pulse 81 03/11/23 12:47 BP 120/80 03/11/23 12:47 Pulse Ox 98 03/11/23 12:47 Oxygen Delivery Method Room Air 03/11/23 12:47 BMI result Body Mass Index 40.6 Tobacco/Smoking Status: Tobacco use Status Tobacco use date assessed 03/11/23 03/11/23 12:56 Patient Tobacco Use Status Former Tobacco user 03/11/23 12:56 e-Cigarette/Vaping Use Never Used 03/11/23 12:56 Depression Screening Interpretation: Positive Thrive Assessment: Date of Thrive Assessment Date Thrive assessed 08/22/21 03/11/23 12:56 Const General: no acute distress HENMT Head: Yes normal to inspection General nose exam: Normal external nose present Mouth: Normal oral and palatal mucosa present Throat: Yes posterior oropharynx normal Neck Neck: Yes no lymphadenopathy and Yes supple Resp Effort & Inspection: normal respiratory effort Auscultation: wheezes and diminished lung sounds Cardio Rhythm: regular rhythm Heart sounds: S1 normal heart sound present and S2 normal heart sound present GI Inspection: Yes normal to inspection Palpation (GI): Soft to palpation Percussion: Yes normal to percussion Auscultation: normal bowel sounds Assessment and Plan Assessment & Plan (1) Annual physical exam: Code(s): Z00.00 - Encounter for general adult medical examination without abnormal findings Plan: Patient will return for fasting blood work. Well-balanced diet regular exercise discussed with the patient (2) Obesity: Code(s): E66.9 - Obesity, unspecified Plan: Weight loss was recommended (3) Asthma: Code(s): J45.909 - Unspecified asthma, uncomplicated Plan: Continue Dulera and Spiriva and albuterol p.r.n. prednisone taper is prescribed for 10 days. patient will follow-up in 2 weeks for follow-up (4) Impaired fasting blood sugar: Code(s): R73.01 - Impaired fasting glucose Plan: ADA diet discussed with the patient check A1c (5) Grief: Code(s): F43.21 - Adjustment disorder with depressed mood Plan: Patient will be referred to a counseling Orders: Orders Hemoglobin A1c Today E66.9 - Obesity, unspecified, J45.909 - Unspecified asthma, uncomplicated, R73.01 - Impaired fasting glucose, Z00.00 - Encounter for general adult medical examination without abnormal findings Microalbumin, Random (w Creat) Today E66.9 - Obesity, unspecified, J45.909 - Unspecified asthma, uncomplicated, R73.01 - Impaired fasting glucose, Z00.00 - Encounter for general adult medical examination without abnormal findings Comprehensive [place]. Panel Fast Today E66.9 - Obesity, unspecified, J45.909 - Unspecified asthma, uncomplicated, R73.01 - Impaired fasting glucose, Z00.00 - Encounter for general adult medical examination without abnormal findings Lipid Panel Today E66.9 - Obesity, unspecified, J45.909 - Unspecified asthma, uncomplicated, R73.01 - Impaired fasting glucose, Z00.00 - Encounter for general adult medical examination without abnormal findings Complete Blood Count Auto Diff Today E66.9 - Obesity, unspecified, J45.909 - Unspecified asthma, uncomplicated, R73.01 - Impaired fasting glucose, Z00.00 - Encounter for general adult medical examination without abnormal findings TSH reflex Free T4 Today E66.9 - Obesity, unspecified, J45.909 - Unspecified asthma, uncomplicated, R73.01 - Impaired fasting glucose, Z00.00 - Encounter for general adult medical examination without abnormal findings Referrals Counseling Referral F43.21 - Adjustment disorder with depressed mood Medications: New prednisone Four tablets p.o. q.d. x3 days then 3 tablets p.o. q.d. x3 days then 2 tablets p.o. q.d. x3 days then 1 tablet p.o. q.d. 3 days orally; 30 tabs 0RF Changed From albuterol sulfate 90 mcg/actuation 2 puffs inhalation Q6H PRN 25.5 grams 0RF shortness of breath or wheezing To albuterol sulfate 90 mcg/actuation 2 puffs inhalation Q4-6H PRN 25.5 grams 0RF shortness of breath or wheezing Coding Level of Care Code Est Pt Prev Care 40-64y([id number]) Diagnoses Annual physical exam Z00.00 Obesity E66.9 Asthma J45.909 Impaired fasting blood sugar R73.01 Grief F43.21
== END 2023-03-11 14:14 | disposition home or self-care (01) ==
PROVIDERS: PCP Internal Medicine; Visit Provider Internal Medicine
DX: Z00.00 Encounter for general adult medical examination without abnormal findings (principal); E66.9 Obesity, unspecified; Z68.41 Body mass index [BMI] 40.0-44.9, adult; J45.909 Unspecified asthma, uncomplicated; R73.01 Impaired fasting glucose; F43.21 Adjustment disorder with depressed mood
CPT/HCPCS: 99396

== ENCOUNTER 2023-03-21 06:55 | Outpatient (REF) | payer BC, SELFPAY ==
[2023-03-21 12:02] LABS: MANUAL DIFF FLAG NO
[2023-03-21 12:13] LABS: Basophils Absolute Auto 0.1 X10*3/uL (0.0-0.2); Basophils Percent Auto 0.9 % (0-2); Eosinophils Absolute Auto 0.3 X10*3/uL (0.0-0.4); Eosinophils Percent Auto 2.8 % (0-4); Hemoglobin 14.6 g/dl (14.0-18.0); Imm Gran Abs Auto 0.13 X10*3/uL (0.00-0.03); Imm Gran Pct Auto 1.1 % (0.0-0.4); Lymphocytes Absolute Auto 4.3 X10*3/uL (1.2-4.9); Lymphocytes Percent Auto 37.6 % (20-40); Mean Corpuscular HGB Conc 33.2 g/dl (31.0-36.0); Mean Corpuscular Hemoglobin 30.7 pg (27.0-33.0); Mean Corpuscular Volume 92.6 fL (80.0-98.0); Mean Platelet Volume 10.6 fL (9.4-12.4); Monocytes Absolute Auto 0.9 X10*3/uL (0.1-1.2); Neutrophils Absolute Auto 5.7 x10*3/uL (2.0-8.3); Neutrophils Percent Auto 49.6 % (45-73); Platelet Count 330 X10*3/uL (160-400); Red Blood Count 4.75 X10*6/uL (4.60-5.80); Red Cell Distribution Width 12.6 % (11.0-16.0); White Blood Count 11.4 X10*3/uL (4.8-10.8)
[2023-03-21 12:21] LABS: Estimated Average Glucose 105 mg/dL; Hemoglobin A1c % 5.3 % (<6.0)
[2023-03-21 12:42] LABS: Alanine Aminotransferase 19 U/L (0-40); Albumin Level 4.3 g/dL (3.5-5.0); Alkaline Phosphatase 83 U/L (39-117); Anion Gap 12 (12-20); Aspartate Amino Transferase 18 U/L (5-37); Bilirubin Total 0.5 mg/dL (0.0-1.0); Blood Urea Nitrogen 13 mg/dL (9-16); Calcium 9.4 mg/dL (8.4-10.2); Carbon Dioxide 32 mmol/L (22-29); Chloride 104 mmol/L (96-108); Cholesterol 203 mg/dL (<200); Estimated Glomerular Filt Rate > 60; Glucose Fasting 109 mg/dL (60-99); HDL Cholesterol 47 mg/dL (>40); LDL Cholesterol Calculated 129 mg/dL (<100); Sodium 144 mmol/L (135-145); Total Protein 7.3 g/dL (6.5-8.0); Triglycerides 137 mg/dL (<150)
[2023-03-21 12:45] LABS: TSH reflex Free T4 5.68 uIU/mL (0.32-4.0)
[2023-03-21 13:28] LABS: Free T4 (Free Thyroxine) 1.05 ng/dL (0.71-1.85)
[2023-03-21 13:32] LABS: Microalbum/Creatinine Ratio Ur 3.2 ug/mg cr (<30)
== END 2023-03-21 06:56 | disposition home or self-care (01) ==
LOC: HO.HMGCLDS 06:55
PROVIDERS: PCP Internal Medicine; Visit Provider Internal Medicine
DX: Z00.00 Encounter for general adult medical examination without abnormal findings (principal); E66.9 Obesity, unspecified; R73.01 Impaired fasting glucose; J45.909 Unspecified asthma, uncomplicated
CPT/HCPCS: 36415; 80053; 80061; 82043; 82570; 83036; 84439; 84443; 85025

== ENCOUNTER 2023-03-25 14:12 | Outpatient (AMB) | payer BC, SELFPAY ==
--- NOTE | 2023-03-25 14:40 | MHC.PC.OV ---
Vital Signs 03/25/23 14:42 Height 5 ft 10 in Weight 287 lb BMI 41.2 BP 110/76 Blood Pressure Location Lt brachial Position Sitting Pulse 64 Pulse Source Pulse Oximeter Pulse Oximetry (%) 98 Oxygen Delivery Method Room Air Intake Visit Reasons: 2 week follow up Allergies levofloxacin [From LEVAQUIN] Allergy (Intermediate, Verified 03/25/23 14:42) NERVE PAIN Tobacco use date assessed: 03/11/23 HPI 2 week follow up HPI Details Patient presents for the follow-up of asthma exacerbation. He has been using Dulera and Spiriva and completed course of prednisone taper. Patient was feeling better while on higher dose of prednisone. He reports intermittent wheezing and shortness of breath but no pleurisy fever chills sputum production. [facility] Medical History Annual physical exam Vasectomy evaluation Obesity Impaired fasting blood sugar Surgical History (Reviewed 03/25/23 @ 15: by Heidi Galindo MD) No pertinent past surgical history Family History Father HTN (hypertension) Mother No problems noted. Other Substance use disorder Social History Housing: House Alcohol intake: current Alcohol intake frequency: holidays/special occasions only Patient Tobacco Use Status: Former Tobacco user Quit Date: 20 plus years ago Years Smoked: 2 e-Cigarette/Vaping Use: Never Used Current occupational status: employed Cognitive needs: No Hearing needs: No Vision needs: Yes Questionnaire Thrive Questionnaire Date Thrive assessed: 03/11/23 NIDIA-7 AMB Questionnaire NIDIA-7 Date NIDIA - 7 assessed: 03/11/23 Source: Developed by Drs. Devonte Michel, Cari Clement, Troy Ram and colleagues, with an educational melanie from [employer]. Review of Systems Const All systems reviewed & are unremarkable except as noted in HPI and below Reports no additional complaints Eyes Reports no additional complaints ENT Reports no additional complaints Card Reports no additional complaints Resp Reports no additional complaints GI Reports no additional complaints Physical exam (Primary Care) Vital Signs: Last Vital Signs Pulse 64 03/25/23 14:42 BP 110/76 03/25/23 14:42 Pulse Ox 98 03/25/23 14:42 Oxygen Delivery Method Room Air 03/25/23 14:42 BMI result Body Mass Index 41.2 Tobacco/Smoking Status: Tobacco use Status Tobacco use date assessed 03/11/23 03/25/23 14:42 Patient Tobacco Use Status Former Tobacco user 03/25/23 14:42 e-Cigarette/Vaping Use Never Used 03/25/23 14:42 Thrive Assessment: Date of Thrive Assessment Date Thrive assessed 03/11/23 03/25/23 14:42 Const General: no acute distress HENMT Head: Yes normal to inspection Neck Neck: Yes supple Resp Effort & Inspection: able to speak in complete sentences Auscultation: wheezes and diminished lung sounds Cardio Rhythm: regular rhythm Heart sounds: S1 normal heart sound present and S2 normal heart sound present Assessment and Plan Assessment & Plan (1) Cough: Code(s): R05.9 - Cough, unspecified Plan: For persistent cough check chest x-ray, BNP and D-dimers. Prednisone taper starting from 60 mg taper down every 4 days by 20 mg. Patient will continue Dulera and CP Tania and follow-up in 2 weeks. Montelukast will be added for extrinsic asthma (2) Asthma: Code(s): J45.909 - Unspecified asthma, uncomplicated Orders: Orders D Dimer High Sensitivity Today J45.909 - Unspecified asthma, uncomplicated, R05.9 - Cough, unspecified B Type Natriuretic Peptide Today J45.909 - Unspecified asthma, uncomplicated, R05.9 - Cough, unspecified Medications: New prednisone 3 tabl qd for 4 days, then 2 tabl qd for 4 days then 1 tabl qd for 4 days 60 mg (3 x 20 mg) PO DAILY 14 tabs 0RF montelukast 10 mg PO DAILY 90 tabs 0RF Coding Level of Care Code Est Pt Level 4 (28930) Diagnoses Cough R05.9 Asthma J45.909
[2023-03-25 14:42] VITALS: BP 110/76; PULSE 64; O2SAT 98; BMI 41.2
== END 2023-03-25 15:28 | disposition home or self-care (01) ==
PROVIDERS: PCP Internal Medicine; Visit Provider Internal Medicine
DX: R05.9 Cough, unspecified (principal); J45.909 Unspecified asthma, uncomplicated
CPT/HCPCS: 99214

== ENCOUNTER 2023-03-25 15:10 | Outpatient (REF) | payer BC, SELFPAY ==
--- NOTE | ~2023-03-25 | XR_ITS ---
EXAMINATION: XR CHEST CLINICAL INFORMATION: Cough COMPARISON: 05/22/2021 TECHNIQUE: 2 views of the chest were obtained. FINDINGS: No significant abnormality is noted involving the heart, lungs, mediastinum, bony thorax or soft tissues. XR/XR chest 2V IMPRESSION: Unremarkable examination with no interval change.
[2023-03-25 16:24] LABS: D Dimer High Sensitivity < 150 NG/ML
[2023-03-25 16:31] LABS: B Type Natriuretic Peptide < 10 pg/mL (<100)
== END 2023-03-25 15:11 | disposition home or self-care (01) ==
LOC: HO.HMGCLDS 15:10
PROVIDERS: PCP Internal Medicine; Visit Provider Internal Medicine
DX: R05.9 Cough, unspecified (principal); J45.909 Unspecified asthma, uncomplicated
CPT/HCPCS: 36415; 71046; 83880; 85379

== ENCOUNTER 2023-04-10 14:05 | Outpatient (AMB) | payer BC, SELFPAY ==
[2023-04-10 14:06] VITALS: BP 118/66; PULSE 102; O2SAT 98; BMI 41.3
--- NOTE | 2023-04-10 14:06 | MHC.PC.OV ---
Vital Signs 04/10/23 14:06 Height 5 ft 10 in Weight 288 lb BMI 41.3 BP 118/66 Blood Pressure Location Lt brachial Position Sitting Pulse 102 H Pulse Source Pulse Oximeter Pulse Oximetry (%) 98 Oxygen Delivery Method Room Air Intake Visit Reasons: 2 Week follow up Intake Note: Pt is here today for 2 weeks follow up visit. Allergies levofloxacin [From LEVAQUIN] Allergy (Intermediate, Verified 04/10/23 14:09) NERVE PAIN Medication List - Last Reconciled 04/10/23 by Heidi Galindo MD albuterol sulfate 90 mcg/actuation 2 puffs inhalation Q4-6H PRN fluticasone propionate 50 mcg/actuation (Flonase Allergy Relief) 2 sprays intranasal DAILY mometasone-formoterol 200-5 mcg/actuation (Dulera) 2 puffs inhalation BID montelukast 10 mg PO DAILY tiotropium bromide 1.25 mcg/actuation (Spiriva Respimat) 2 puffs inhalation DAILY Tobacco use date assessed: 03/11/23 Dental Screening Dental Screen Date: 04/10/23 Did you have a dental visit in the last 12 months?: Yes Did you have a dental problem in the last 6 months where you did not have access to dental care?: No Was dental information given to patient?: Patient has dentist HPI 2 Week follow up HPI Details Patient presents for the follow-up of asthma exacerbation improved after prednisone taper. Patient reports postnasal drip occasionally morning cough with white phlegm. [facility] Medical History Annual physical exam Vasectomy evaluation Obesity Impaired fasting blood sugar Surgical History No pertinent past surgical history Family History Father HTN (hypertension) Mother No problems noted. Other Substance use disorder Social History Housing: House Alcohol intake: current Alcohol intake frequency: holidays/special occasions only Patient Tobacco Use Status: Former Tobacco user Quit Date: 20 plus years ago Years Smoked: 2 e-Cigarette/Vaping Use: Never Used Current occupational status: employed Cognitive needs: No Hearing needs: No Vision needs: Yes Questionnaire Thrive Questionnaire Date Thrive assessed: 03/11/23 NIDIA-7 AMB Questionnaire NIDIA-7 Date NIDIA - 7 assessed: 03/11/23 Source: Developed by Drs. Devonte Michel, Cari Clement, Troy Ram and colleagues, with an educational melanie from [employer]. Review of Systems Const All systems reviewed & are unremarkable except as noted in HPI and below Reports no additional complaints Eyes Reports no additional complaints ENT Reports no additional complaints Card Reports no additional complaints Resp Reports no additional complaints GI Reports no additional complaints Physical exam (Primary Care) Vital Signs: Last Vital Signs Pulse 102 H 04/10/23 14:06 BP 118/66 04/10/23 14:06 Pulse Ox 98 04/10/23 14:06 Oxygen Delivery Method Room Air 04/10/23 14:06 BMI result Body Mass Index 41.3 Tobacco/Smoking Status: Tobacco use Status Tobacco use date assessed 03/11/23 04/10/23 14:11 Patient Tobacco Use Status Former Tobacco user 04/10/23 14:11 e-Cigarette/Vaping Use Never Used 04/10/23 14:11 Thrive Assessment: Date of Thrive Assessment Date Thrive assessed 03/11/23 04/10/23 14:11 Const General: no acute distress HENMT Face and sinus: Yes normal facial exam Mouth: Normal oral and palatal mucosa present Eyes General: appearance normal, both eyes and all related structures Neck Neck: Yes no lymphadenopathy and Yes supple Resp Effort & Inspection: normal respiratory effort Auscultation: clear to auscultation bilaterally Cardio Rhythm: regular rhythm Heart sounds: S1 normal heart sound present and S2 normal heart sound present Assessment and Plan Assessment & Plan (1) Hypothyroid: Code(s): E03.9 - Hypothyroidism, unspecified Plan: Recheck TSH in 2 months (2) Asthma: Code(s): J45.909 - Unspecified asthma, uncomplicated Plan: Continue current treatment add Flonase nasal spray for postnasal drip and follow-up in 2 months Orders: Orders TSH reflex Free T4 2 Months E03.9 - Hypothyroidism, unspecified Medications: New fluticasone propionate 50 mcg/actuation (Flonase Allergy Relief) administer into each nostril 2 sprays intranasal DAILY 16 grams 3RF fluticasone propionate 50 mcg/actuation (Flonase Allergy Relief) administer into each nostril 2 sprays intranasal DAILY 32 grams 3RF Coding Level of Care Code Est Pt Level 3 (13847) Diagnoses Hypothyroid E03.9 Asthma J45.909
== END 2023-04-10 14:38 | disposition home or self-care (01) ==
PROVIDERS: PCP Internal Medicine; Visit Provider Internal Medicine
DX: E03.9 Hypothyroidism, unspecified (principal); J45.909 Unspecified asthma, uncomplicated
CPT/HCPCS: 99213

== ENCOUNTER 2023-08-17 11:18 | Outpatient (AMB) | payer BC, SELFPAY ==
[2023-08-17 11:33] VITALS: BP 112/70; PULSE 69; O2SAT 99; BMI 41.0
--- NOTE | 2023-08-17 11:33 | MHC.PC.OV ---
Vital Signs 08/17/23 11:33 Height 5 ft 10 in Weight 286 lb BMI 41.0 BP 112/70 Blood Pressure Location Lt brachial Position Sitting Pulse 69 Pulse Source Pulse Oximeter Pulse Oximetry (%) 99 Oxygen Delivery Method Room Air Intake Visit Reasons: ? of pulled muscle in abdomen Intake Note: Pt is here today for a sick visit. Pt states that last Thursday he was moving some stuff and he started having pain in his groin area on the L side. Pt states that he has nausea and he has throbbing pain. Allergies levofloxacin [From LEVAQUIN] Allergy (Intermediate, Verified 08/17/23 11:37) NERVE PAIN Tobacco use date assessed: 08/17/23 Dental Screening Dental Screen Date: 08/17/23 Did you have a dental visit in the last 12 months?: Yes Did you have a dental problem in the last 6 months where you did not have access to dental care?: No Was dental information given to patient?: Patient has dentist HPI ? of pulled muscle in abdomen HPI Details pt c/o LLQ abd pain sharp on and off for 5 days, with nausea, no vomiting, fever or chills dysuria or urinary frequency. The pain is worse after BM, which has been pencil like narrow and black but no hematochezia. Patient had last bowel movement this morning. He reports decreased appetite. He has a history of recurrent diverticulitis and is scheduled for the appointment with GI the end of this month to discuss colonoscopy. [facility] Medical History Annual physical exam Vasectomy evaluation Obesity Impaired fasting blood sugar Surgical History History of hernia surgery Family History Father HTN (hypertension) Mother No problems noted. Other Substance use disorder Social History Housing: House Alcohol intake: current Alcohol intake frequency: holidays/special occasions only Patient Tobacco Use Status: Former Tobacco user Quit Date: 20 plus years ago Years Smoked: 2 e-Cigarette/Vaping Use: Never Used service: No Current occupational status: employed Cognitive needs: No Hearing needs: No Vision needs: Yes Questionnaire Thrive Questionnaire Date Thrive assessed: 03/11/23 AUDIT C Alcohol Use Questionnaire (AUDIT-C) 1. How often do you have a drink containing alcohol?: 2-3 times a week 2. How many drinks containing alcohol do you have on a typical day when you are drinking?: 1 or 2 3. How often do you have six or more drinks on one occasion?: Never Total Score: 3 NIDIA-7 AMB Questionnaire NIDIA-7 Date NIDIA - 7 assessed: 03/11/23 Source: Developed by Drs. Devonte Michel, Cari Clement, Troy Ram and colleagues, with an educational melanie from [employer]. Review of Systems Const All systems reviewed & are unremarkable except as noted in HPI and below Reports no additional complaints Eyes Reports no additional complaints ENT Reports no additional complaints Card Reports no additional complaints Resp Reports no additional complaints GI Reports no additional complaints Reports no additional complaints Physical exam (Primary Care) Vital Signs: Last Vital Signs Pulse 69 08/17/23 11:33 BP 112/70 08/17/23 11:33 Pulse Ox 99 08/17/23 11:33 Oxygen Delivery Method Room Air 08/17/23 11:33 BMI result Body Mass Index 41.0 Tobacco/Smoking Status: Tobacco use Status Tobacco use date assessed 08/17/23 08/17/23 11:39 Patient Tobacco Use Status Former Tobacco user 08/17/23 11:39 e-Cigarette/Vaping Use Never Used 08/17/23 11:39 Thrive Assessment: Date of Thrive Assessment Date Thrive assessed 03/11/23 08/17/23 11:39 Const General: no acute distress HENMT Head: Yes normal to inspection Resp Effort & Inspection: normal respiratory effort Auscultation: clear to auscultation bilaterally Cardio Rhythm: regular rhythm Heart sounds: S1 normal heart sound present and S2 normal heart sound present GI Other: LLQ tenderness, no rebound Inspection: Yes normal to inspection Palpation (GI): Soft to palpation Percussion: Yes normal to percussion Auscultation: normal bowel sounds Assessment and Plan Assessment & Plan (1) LLQ abdominal pain: Code(s): R10.32 - Left lower quadrant pain Plan: For acute left lower quadrant abdominal pain CT of the abdomen pelvis will be obtained to evaluate for diverticulitis. CBC comprehensive panel and sed rate will be checked (2) Diverticulitis: Code(s): K57.92 - Diverticulitis of intestine, part unspecified, without perforation or abscess without bleeding Orders: Orders Comprehensive Met. Panel Today R10.32 - Left lower quadrant pain CT abdomen pelvis wo/w IV con Today K57.92 - Diverticulitis of intestine, part unspecified, without perforation or abscess without bleeding Complete Blood Count Auto Diff Today R10.32 - Left lower quadrant pain UA w Microscopic Today R10.32 - Left lower quadrant pain Erythrocyte Sedimentation Rate Today R10.32 - Left lower quadrant pain Coding Level of Care Code Est Pt Level 3 (38231) Diagnoses LLQ abdominal pain R10.32 Diverticulitis K57.92
== END 2023-08-17 12:45 | disposition home or self-care (01) ==
PROVIDERS: PCP Internal Medicine; Visit Provider Internal Medicine
DX: R10.32 Left lower quadrant pain (principal); K57.92 Diverticulitis of intestine, part unspecified, without perforation or abscess without bleeding
CPT/HCPCS: 99213

== ENCOUNTER 2023-08-17 12:31 | Outpatient (REF) | payer BC, SELFPAY ==
[2023-08-17 16:12] LABS: Appearance Urine Clear; Color Urine Yellow; Glucose Urine UA Negative (Negative); Leukocyte Esterase Urine Negative (Negative); Nitrite Urine Negative (Negative); PH 5.5 (5.0-9.0); Specific Gravity - Urine 1.015 (1.005-1.025); Urine Blood Negative (Negative); Urine Ketones Negative (Negative); Urine Protein Negative (Neg-Trace)
[2023-08-17 16:12] LABS: MANUAL DIFF FLAG NO
[2023-08-17 16:15] LABS: Bacteria Urine None Seen (None Seen); Hyaline Casts Urine 0-2 /LPF (0-2); RBC Urine 0-2 /HPF (0-2); Squamous Epithelial Cell Urine 0-2 /HPF (0-2); WBC Urine 0-5 /HPF (0-5)
[2023-08-17 16:21] LABS: Basophils Absolute Auto 0.1 X10*3/uL (0.0-0.2); Basophils Percent Auto 1.5 % (0-2); Eosinophils Absolute Auto 0.2 X10*3/uL (0.0-0.4); Eosinophils Percent Auto 2.6 % (0-4); Hematocrit 40.1 % (42.0-52.0); Imm Gran Abs Auto 0.07 X10*3/uL (0.00-0.03); Lymphocytes Absolute Auto 2.3 X10*3/uL (1.2-4.9); Lymphocytes Percent Auto 30.7 % (20-40); Mean Corpuscular HGB Conc 34.9 g/dl (31.0-36.0); Mean Corpuscular Hemoglobin 30.7 pg (27.0-33.0); Mean Corpuscular Volume 87.9 fL (80.0-98.0); Mean Platelet Volume 10.1 fL (9.4-12.4); Monocytes Absolute Auto 0.5 X10*3/uL (0.1-1.2); Monocytes Percent Auto 7.3 % (2-11); Neutrophils Absolute Auto 4.2 x10*3/uL (2.0-8.3); Neutrophils Percent Auto 56.9 % (45-73); Platelet Count 293 X10*3/uL (160-400); Red Blood Count 4.56 X10*6/uL (4.60-5.80); White Blood Count 7.4 X10*3/uL (4.8-10.8)
[2023-08-17 16:50] LABS: Alanine Aminotransferase 22 U/L (0-40); Albumin Level 4.3 g/dL (3.5-5.0); Alkaline Phosphatase 82 U/L (39-117); Anion Gap 10 (12-20); Aspartate Amino Transferase 19 U/L (5-37); Bilirubin Total 0.7 mg/dL (0.0-1.0); Blood Urea Nitrogen 12 mg/dL (9-16); Calcium 9.3 mg/dL (8.4-10.2); Carbon Dioxide 28 mmol/L (22-29); Chloride 105 mmol/L (96-108); Estimated Glomerular Filt Rate > 60; Glucose Random 89 mg/dL (60-115); Potassium 3.8 mmol/L (3.3-5.1); Sodium 139 mmol/L (135-145); Total Protein 7.3 g/dL (6.5-8.0)
[2023-08-17 16:57] LABS: Erythrocyte Sedimentation Rate 10 MM/HR (0-15)
== END 2023-08-17 12:32 | disposition home or self-care (01) ==
LOC: HO.HMGCLDS 12:31
PROVIDERS: PCP Internal Medicine; Visit Provider Internal Medicine
DX: R10.32 Left lower quadrant pain (principal)
CPT/HCPCS: 36415; 80053; 81001; 85025; 85652

== ENCOUNTER 2023-08-17 13:45 | Outpatient (REF) | payer BC, SELFPAY ==
--- NOTE | ~2023-08-17 | CT_ITS ---
EXAMINATION: CT ABDOMEN AND PELVIS WITH CONTRAST CLINICAL INFORMATION: Left lower quadrant pain COMPARISON: CT abdomen pelvis 11/20/2021 TECHNIQUE: Multidetector volumetric images were obtained from the superior aspect of the liver through the pubic symphysis following administration 85 mL of Omnipaque 350 intravenous contrast. Sagittal and coronal reformatted images were obtained on the technologist's workstation. Oral contrast: Yes This CT examination was performed using dose optimization techniques as appropriate, variously including the following: *Automated exposure control *Adjustment of mA and/or kV according to patient size (this includes techniques or standardized protocols for targeted exams where dose is matched to indication/reason for exam; i.e. extremities or head) *Use of iterative reconstruction technique DLP: 865 mGy-cm FINDINGS: LUNG BASES: The visualized lung bases are unremarkable. LIVER, GALLBLADDER, AND BILIARY TREE: The liver is normal in size, shape, and attenuation. No focal hepatic lesion or biliary ductal dilatation is present. The gallbladder is unremarkable with no evidence of radiopaque gallstones, gallbladder wall thickening, or obvious pericholecystic inflammatory changes. PANCREAS: Unremarkable. SPLEEN: Spleen is enlarged at 13.1 cm in greatest cephalocaudad dimension. ADRENAL GLANDS: Unremarkable. KIDNEYS AND URETERS: The kidneys are normal in size, shape, and attenuation. No hydronephrosis, hydroureter, or calculi seen. No perinephric stranding. BLADDER: Unremarkable. GASTROINTESTINAL TRACT: The small and large bowel are unremarkable aside from some scattered colonic diverticula without diverticulitis. The appendix is unremarkable. ABDOMINAL WALL: No significant hernia is appreciated. LYMPH NODES: Normal. VASCULAR: Unremarkable. PELVIC VISCERA: The prostate and seminal vesicles are unremarkable. OSSEOUS STRUCTURES: Unremarkable. CT/CT abdomen pelvis w IV con IMPRESSION: 1. A cause for the patient's left lower quadrant pain has not been found. 2. Incidental note made of mild splenomegaly and colonic diverticulosis without diverticulitis. Fleischner guidelines were followed.
[2023-08-17] MEDS: iohexoL 350 MG/ML 100 ML INFUS..BTL 85 ML IV (16:25)
[2023-08-17] MEDS: Barium Sulfate Oral (Mocha) 450 ML ORAL.SUSP 900 ML PO (16:27)
== END 2023-08-17 13:46 | disposition home or self-care (01) ==
LOC: HO.XRAY 13:45
PROVIDERS: PCP Internal Medicine; Visit Provider Internal Medicine
DX: R10.32 Left lower quadrant pain (principal); K57.92 Diverticulitis of intestine, part unspecified, without perforation or abscess without bleeding
CPT/HCPCS: 74177; Q9967

== ENCOUNTER 2023-09-02 15:16 | Outpatient (AMB) | payer BC, SELFPAY ==
--- NOTE | 2023-09-02 15:25 | MHC.OFFVIS ---
Vital Signs 09/02/23 15:26 Height 5 ft 10 in Weight 282 lb 3.067 oz BMI 40.5 BP 112/88 Blood Pressure Location Lt brachial Position Sitting Pulse 86 Intake Visit Reasons: Colonoscopy Screening. Intake Note: Wang presents in the office as a new patient for a colonoscopy screening. CC: Hx of diverticulitis. He states that he has been putting this off and he did have a pain in the LLQ once upon a time. He states it was not familiar with his usual diverticulitis pains. He wasnt going to the bathroom normally at the time. He was told his spleen was enlarged. 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 male with past medical history of asthma, transaminitis, obesity is here today for pre colonoscopy screening.? Patient was sent to us by his PCP.? Patient has a history of diverticulitis in the past. Last episode 2 years ago. Patient had last colonoscopy about 6 years ago or so.? Recently patient was experiencing left lower quadrant pain and was sent to get CT scan by his PCP. No acute processes, diverticulosis noted without diverticulitis. Denies any personal or family history of gastrointestinal disease or CRC.? Denies history of difficulty with sedation or anesthesia in the past.? Negative for history of sleep apnea.? Denies any history of cardiac, renal, pulmonary, or hepatic disease.?? No history of infectious? diseases like hepatitis A, B, C, HIV or tuberculosis.? Patient is not on any anticoagulation therapy. [facility] Medical History (Updated 09/02/23 @ 15:55 by Marleny Berry, [facility]) Diverticulosis Annual physical exam Vasectomy evaluation Obesity Impaired fasting blood sugar Surgical History (Updated 09/02/23 @ 15:27 by CHUCK Salamanca) Hx of colonoscopy History of hernia surgery Family History Father HTN (hypertension) Mother No problems noted. Other Substance use disorder Social History Housing: House Alcohol intake: current Alcohol intake frequency: holidays/special occasions only Patient Tobacco Use Status: Former Tobacco user Quit Date: 20 plus years ago Years Smoked: 2 e-Cigarette/Vaping Use: Never Used service: No Current occupational status: employed Cognitive needs: No Hearing needs: No Vision needs: Yes Review of Systems Const Denies weight gain and Denies weight loss ENT Reports no additional complaints, Denies dysphagia and Denies odynophagia Card Reports no additional complaints Resp Reports no additional complaints GI Denies abdominal pain, Denies belching, Denies melena, Denies bloating, Denies change in bowel habits, Denies dysphagia, Denies excessive flatus, Denies dyspepsia, Denies heartburn, Denies diarrhea, Denies loose stools, Denies nausea, Denies odynophagia and Denies vomiting Reports no additional complaints Musc Reports no additional complaints Neuro Reports no additional complaints Psych Reports no additional complaints Endo Reports no additional complaints Physical Exam Vital Signs: BMI result Body Mass Index 40.5 Const General: healthy appearing and no acute distress Nutritional Appearance: obese Orientation/consciousness: patient oriented x3 Resp Effort & Inspection: normal respiratory effort, able to speak in complete sentences, no tracheal deviation and symmetric chest movement Auscultation: clear to auscultation bilaterally Cardio Rate: regular rate GI Inspection: Yes normal to inspection, No distended and Yes obesity Palpation (GI): Soft to palpation, not firm, nontender and No hepatosplenomegaly present Auscultation: normal bowel sounds General: Yes no CVA tenderness Back/Spine/Pelvis Back: no CVA tenderness Skin General skin exam: elasticity normal, turgor normal and dry skin Neuro General: patient oriented x3 Psych Appearance: grossly normal Mental Status: mental status grossly normal Assessment & Plan Assessment & Plan (1) Screen for colon cancer: Code(s): Z12.11 - Encounter for screening for malignant neoplasm of colon (2) LLQ abdominal pain: Code(s): R10.32 - Left lower quadrant pain Category: Medical (3) Diverticulosis: Code(s): K57.90 - Diverticulosis of intestine, part unspecified, without perforation or abscess without bleeding Category: Medical (4) Diverticulitis: Code(s): K57.92 - Diverticulitis of intestine, part unspecified, without perforation or abscess without bleeding Plan Patient denies any cardiac or respiratory symptoms. ?Denies any issues with anesthesia in the past.? Denies any history of sleep apnea.? No history infectious diseases in the past or present.? Not on any anticoagulation therapy.? No family or personal history of colon cancer. ? History of diverticulitis in the past last colonoscopy 6 years ago. Patient was told that he should have a colorectal screening every 6 years to to his diverticular disease. Patient had no polyps then. Currently he is taking Metamucil and reports that he is moving his bowels better. As mentioned above in HPI patient had occurrence of left lower quadrant pain, however CT of abdomen did not show diverticulitis. Patient denies melena, hematochezia, unintentional weight loss or ribbon like stools.? Discussed at length the pre-procedure,? prep, diet & medications as well as what to expect prior, during and after the procedure.?? Stressed the importance of good bowel prep. ?Recommended the use of Vaseline or Calmoseptine OTC & baby wipes with bowel movements to promote comfort.? ?Patient verbalizes understanding and agrees to plan of care.? He was given the opportunity to ask questions and all questions answered.? We will see him after the procedure.? Medications: New bisacodyl (Dulcolax (bisacodyl)) Start taking 2 tablet every night 7 days before the procedure and 1 day before procedure take 4 tablets at noon time followed by MiraLax prep 10 mg (2 x 5 mg) PO BEDTIME 16 tabs 0RF Z12.11 - Encounter for screening for malignant neoplasm of colon polyethylene glycol 3350 (Miralax) As directed by gastroenterology department at [facility] 238 grams PO ONCE 238 grams 0RF Z12.11 - Encounter for screening for malignant neoplasm of colon Coding Level of Care Code New Pt Level 4 (78711) Diagnoses Screen for colon cancer Z12.11 LLQ abdominal pain R10.32 Diverticulosis K57.90 Diverticulitis K57.92 Time Spent (min) 45 Comment 30 minutes spent with patient and additional 15 minutes spent reviewing his records
[2023-09-02 15:26] VITALS: BP 112/88; PULSE 86; BMI 40.5
== END 2023-09-02 16:09 | disposition home or self-care (01) ==
PROVIDERS: PCP Internal Medicine; Referring Provider Internal Medicine; Visit Provider Nurse Practitioner Family
DX: Z01.818 Encounter for other preprocedural examination (principal); Z12.11 Encounter for screening for malignant neoplasm of colon; Z87.19 Personal history of other diseases of the digestive system
CPT/HCPCS: S0285

== ENCOUNTER → 2023-09-02 15:16 | Outpatient (BNVA) | payer BC, SELFPAY | PROVIDERS: PCP Internal Medicine; Visit Provider Nurse Practitioner Family ==

== ENCOUNTER 2024-01-17 18:55 | Emergency (ER) | payer OTHER, SELFPAY ==
--- NOTE | ~2024-01-17 | XR_ITS ---
EXAMINATION: XR HAND, LEFT CLINICAL INFORMATION: Pain, injury. COMPARISON: None available. TECHNIQUE: PA, lateral, and oblique views of the left hand. FINDINGS: No acute fracture or dislocation. No significant degenerative changes. No osseous erosions. Normal soft tissues. XR/XR hand LT min 3V IMPRESSION: Normal radiographic examination of the left hand. Electronically signed by: Nancy Delvalle MD 01/17/2024 07:21 PM EDT
--- NOTE | 2024-01-17 18:58 | ED.GENADULT ---
HPI - General Adult General Chief complaint: Wound/Laceration Stated complaint: LT hand lac Time Seen by Provider: 01/17/24 20:15 Source: patient and old records reviewed Mode of arrival: ambulatory Limitations: no limitations History of Present Illness ED Provider: Kylah HPI narrative: 48M presents with a chief complaint of left hand laceration. Patient states around 6:45pm today he was trying to move sheet metal and it fell at an odd angle, cutting him. He states the laceration was about 1.5 inches long at the base of the index finger. Admits to 8/10 throbbing pain, worst at the cut but radiating to the left ring finger. He denies any medication use, numbness, tingling. He states the hand has started to feel cool in the last few minutes. Denies any anticoagulant or anti-platelet use. Related Data Previous Rx's ?Medication ?Instructions ?Recorded mometasone-formoterol HFA 200 2 puff inhalation BID #26.4 grams 11/19/22 mcg-5 mcg/actuation aerosol inhaler (Dulera) tiotropium bromide 1.25 2 puff inhalation DAILY #12 grams 11/19/22 mcg/actuation mist for inhalation (Spiriva Respimat) albuterol sulfate 90 mcg/actuation 2 puff inhalation Q4-6H PRN 03/11/23 aerosol inhaler shortness of breath or wheezing #25.5 grams bisacodyl 5 mg tablet,delayed 10 mg (2 x 5 mg) PO BEDTIME #16 09/02/23 release (Dulcolax (bisacodyl)) tabs polyethylene glycol 3350 17 238 g PO ONCE #238 grams 09/02/23 gram/dose oral powder (Miralax) Allergies Allergy/AdvReac Type Severity Reaction Status Date / Time levofloxacin [From LEVAQUIN] Allergy Intermediate NERVE PAIN Verified 01/17/24 19:05 Review of Systems Constitutional: Constitutional: Denies chills and Denies fever(s) Musculoskeletal: Musculoskeletal: Denies limited range of motion, Denies numbness and Denies tingling Neurologic: Denies numbness, Denies tingling and Denies paresthesias PMFSH Past Medical History Medical History (Updated 01/17/24 @ 21:48 by Shahbaz Montero) Diverticulosis Annual physical exam Vasectomy evaluation Obesity Impaired fasting blood sugar Surgical History Hx of colonoscopy History of hernia surgery Family History Family History Father HTN (hypertension) Mother No problems noted. Other Substance use disorder Social History Social History Housing: House Alcohol intake: current Alcohol intake frequency: holidays/special occasions only Patient Tobacco Use Status: Former Tobacco user Years Smoked: 2 e-Cigarette/Vaping Use: Never Used Advance Directives: Yes Advance Directives Information Provided: No Advance Directives on File: No Do you have a plan to hurt others: No Plan service: No Current occupational status: employed Cognitive needs: No Hearing needs: No Vision needs: Yes Physical Exam ED Vital Signs: Vital Signs - 24 hr 01/17/24 19:03 01/17/24 20:43 Temperature 97.8 F Pulse Rate 84 65 Respiratory Rate 16 17 Blood Pressure 156/90 H 107/64 Pulse Oximetry 97 99 Oxygen Delivery Method Room Air Room Air BMI result Body Mass Index 39.9 Skin Other: Patient has a 3 cm curvilinear laceration with somewhat jagged edges to the palmar surface of the base of left 2nd finger proximal to the MCP joint. The patient has full flexion and extension range of motion to the left 2nd finger at the MCP, PIP and PIP joints. Trauma: laceration (3.75 cm linear laceration at left first MCP joint) Course Course Course Narrative: RME performed by Alejandra Gtz PA-C. Patient is a 48 year old assigned male at presenting to the emergency department with a left hand laceration. Patient states that he was trying to put together a metal shed when he slid the last metal panel in and it cut his left hand. Detailed physical exam and review of systems are deferred to the carbon paper coating machine setter. Imaging ordered. Patient placed back in the waiting room pending room availability and results. Medications Administered Discontinued Medications Generic Name Dose Route Start Last Admin Trade Name Freq PRN Reason Stop Dose Admin Acetaminophen 975 mg 01/17/24 20:30 01/17/24 20:36 Acetaminophen 325 Mg Tablet PO 01/17/24 20:31 975 mg ONCE ONE Administration Diphtheria/Tetanus/Acell Pertussis 0.5 ml 01/17/24 18:59 01/17/24 19:30 Diphth,Pertus(Acell),Tet Adult 0.5 Ml Syringe IM 01/17/24 19:00 0.5 ml .ONCE ONE Administration Procedures Laceration Laceration 1: Site: hand Side (If applicable): left (Second finger) Size (cm): 3 Description: linear and irregular Depth: simple, single layer Local Anesthetic: lidocaine 1% and with epi Amount of anesthesia used (mL): 3 Pre-repair: wound explored, irrigated extensively and deep structures intact Skin layer closed with: nylon Size (cm): 5-0 Number of sutures: 6 Technique: simple, interrupted Medical Decision Making Medical Decision Making MDM Narrative: X-ray shows no evidence of osseous injury or retained foreign body. Patient has no clinical evidence of tendon injury. See procedure note for wound repair. Laceration repair was performed by Hannah Martines under my direct supervision. Differential Diagnosis Differential Diagnoses: The differential diagnosis associated with the presentation includes Laceration Skin tear Puncture wound Foreign body Independent Interpretation I performed an independent interpretation of an: Plain X-Ray Interpretation: Agree with Radiology interpretation Radiology Impression Discussion of test interpretation with radiology: I have reviewed the radiologist's reading. Radiologist Impression: XR/XR hand LT min 3V IMPRESSION: Normal radiographic examination of the left hand. Electronically signed by: Nancy Delvalle MD 01/17/2024 07:21 PM EDT RP Discharge Plan Discharge Clinical Impression: Laceration of hand, left Patient Disposition: Home, Self-Care Instructions: Laceration (ED) Additional Instructions: You had 6 sutures placed in your hand. These can be removed in 10-14 days. Keep the area clean and dry You may apply topical antibiotic every other day Your tetanus was also updated today Prescriptions: No Action Dulera 200-5 mcg/actuation HFA aerosol inhaler 2 puff inhalation BID Qty: 26.4 3RF Spiriva Respimat 1.25 mcg/actuation mist 2 puff inhalation DAILY Qty: 12 3RF albuterol sulfate 90 mcg/actuation HFA aerosol inhaler 2 puff inhalation Q4-6H PRN (Reason: shortness of breath or wheezing) Qty: 25.5 0RF bisacodyl [Dulcolax (bisacodyl)] 5 mg tablet,delayed release (DR/EC) 10 mg PO BEDTIME Qty: 16 0RF Rx Instructions: Start taking 2 tablet every night 7 days before the procedure and 1 day before procedure take 4 tablets at noon time followed by MiraLax prep polyethylene glycol 3350 [Miralax] 17 gram/dose powder 238 g PO ONCE Qty: 238 0RF Rx Instructions: As directed by gastroenterology department at [facility] Print Language: Kazakh
[2024-01-17 19:03] VITALS: BP 156/90; PULSE 84; RESP 16; O2SAT 97; BMI 39.9
[2024-01-17] MEDS: Diphth,Pertus(ACell),Tet Adult 0.5 ML SYRINGE IM (19:30)
[2024-01-17] MEDS: Acetaminophen 325 MG TABLET 975 MG PO (20:36)
[2024-01-17 20:43] VITALS: BP 107/64; PULSE 65; RESP 17; TEMP 36.6; O2SAT 99
[2024-01-17 22:12] VITALS: BP 109/54; PULSE 76; RESP 17; TEMP 36.5; O2SAT 96
[2024-01-17 22:46] VITALS: BP 109/54; PULSE 76; RESP 17; TEMP 36.5; O2SAT 96
== END 2024-01-17 22:46 | disposition home or self-care (01) ==
PROVIDERS: Emergency Provider Emergency Medicine; PCP Internal Medicine
DX: S61.211A Laceration without foreign body of left index finger without damage to nail, initial encounter (principal); W26.8XXA Contact with other sharp object(s), not elsewhere classified, initial encounter; Y93.89 Activity, other specified; Y92.89 Other specified places as the place of occurrence of the external cause; Y99.8 Other external cause status; Z23 Encounter for immunization
CPT/HCPCS: 12042; 73130; 90471; 90715; 99283; 99284

== ENCOUNTER 2024-01-29 10:55 | Outpatient (AMB) | payer OTHER, SELFPAY ==
[2024-01-29 11:04] VITALS: BP 120/70; PULSE 83; O2SAT 98; BMI 40.2
--- NOTE | 2024-01-29 11:04 | A.OFFPC_ITS ---
Vital Signs 01/29/24 11:04 Height 5 ft 10 in Weight 280 lb BMI 40.2 BP 120/70 Blood Pressure Location Rt brachial Position Sitting Pulse 83 Pulse Source Pulse Oximeter Pulse Oximetry (%) 98 Oxygen Delivery Method Room Air Intake Visit Reasons: 10 day post stitches ED Intake Note: Pt is here today for ER follow up visit. Allergies levofloxacin [From LEVAQUIN] Allergy (Intermediate, Verified 01/29/24 11:04) NERVE PAIN Medication List - Last Reconciled 01/29/24 by Heidi Galindo MD albuterol sulfate 90 mcg/actuation 2 puffs inhalation Q4-6H PRN bisacodyl (Dulcolax (bisacodyl)) 10 mg (2 x 5 mg) PO BEDTIME mometasone-formoterol 200-5 mcg/actuation (Dulera) 2 puffs inhalation BID polyethylene glycol 3350 (Miralax) 238 grams PO ONCE tiotropium bromide 1.25 mcg/actuation (Spiriva Respimat) 2 puffs inhalation DAILY Tobacco use date assessed: 01/29/24 Dental Screening Dental Screen Date: 08/17/23 HPI 10 day post stitches ED HPI Details Patient presents to have the stitches removed from left thumb. he complains of lower back pain for 4 days radiating to left lower extremity no weakness numbness or change in bowel bladder function. [facility] Medical History (Updated 01/18/24 @ 00:01 by Baltazar James) Diverticulosis Annual physical exam Vasectomy evaluation Obesity Impaired fasting blood sugar Surgical History Hx of colonoscopy History of hernia surgery Family History Father HTN (hypertension) Mother No problems noted. Other Substance use disorder Social History Housing: House Alcohol intake: current Alcohol intake frequency: holidays/special occasions only Patient Tobacco Use Status: Former Tobacco user Years Smoked: 2 e-Cigarette/Vaping Use: Never Used service: No Current occupational status: employed Cognitive needs: No Hearing needs: No Vision needs: Yes Questionnaire PHQ-9 Over the last 2 weeks, how often have you been bothered by any of the following problems? 1. Little interest or pleasure in doing things: several days 2. Feeling down, depressed, or hopeless: several days 3. Trouble falling or staying asleep, or sleeping too much: several days 4. Feeling tired or having little energy: several days 5. Poor appetite or overeating: several days 6. Feeling bad about yourself - or that you are a failure or have let yourself or your family down: not at all 7. Trouble concentrating on things, such as reading the newspaper or watching television: several days 8. Moving or speaking so slowly that other people could have noticed. Or the opposite - being so fidgety or restless that you have been moving around a lot more than usual: not at all 9. Thoughts that you would be better off or of hurting yourself in some way: not at all Total score: 6 Depression Screening Interpretation: Negative Depression Screening Done: Yes 10125 - PHQ-9 Billing: Yes Source: Developed by Drs. Devonte Michel, Cari Clement, Troy Ram and colleagues, with an educational melanie from [employer]. Thrive Questionnaire Date Thrive assessed: 01/29/24 I am a: Patient What is your living situation today?: I have a steady place to live Within the past 12 months, did the food you bought not last and you didn't have the money to get more?: Never true Within the past 12 months, did you worry whether your food would run out before you got money to buy more?: Never true Do you have trouble paying for medicines?: No Do you have trouble getting transportation to medical appointments?: No Do you have trouble paying your heating and electricity bill?: No Do you have trouble taking care of your child, family member or friend?: No Do you have trouble with day-to-day activities such as bathing, preparing meals, shopping, managing finances, etc.?: No Are you interested in more education?: No Please select the resources that you would like help with: None Currently or been in a relationship where the following occur: No concerns reported THRIVE Score: 0 AUDIT C Alcohol Use Questionnaire (AUDIT-C) 1. How often do you have a drink containing alcohol?: 2-3 times a week 2. How many drinks containing alcohol do you have on a typical day when you are drinking?: 1 or 2 3. How often do you have six or more drinks on one occasion?: Less than monthly Total Score: 4 NIDIA-7 AMB Questionnaire NIDIA-7 Date NIDIA - 7 assessed: 01/29/24 Feeling nervous, anxious, or on edge: 1 = Several days Not being able to stop or control worryin = Several days Worrying too much about different things: 1 = Several days Trouble relaxin = More than half the days Being so restless that it is hard to sit still: 2 = More than half the days Becoming easily annoyed or irritable: 2 = More than half the days Feeling afraid as if something awful might happen: 0 = Not at all Total NIDIA-7 score (0-4 normal; 5-9 mild; 10-14 moderate; 15-21 severe): 9 Source: Developed by Drs. Devonte Michel, Cari Clement, Troy Ram and colleagues, with an educational melanie from [employer]. NIDIA-7 Assessment Billing NIDIA-7 Assessment Tool: NIDIA-7 Assessment 53078 Review of Systems Const All systems reviewed & are unremarkable except as noted in HPI and below ENT Reports no additional complaints Card Reports no additional complaints Resp Reports no additional complaints GI Reports no additional complaints Physical exam (Primary Care) Vital Signs: Last Vital Signs Pulse 83 01/29/24 11:04 BP 120/70 01/29/24 11:04 Pulse Ox 98 01/29/24 11:04 Oxygen Delivery Method Room Air 01/29/24 11:04 BMI result Body Mass Index 40.2 Tobacco/Smoking Status: Tobacco use Status Tobacco use date assessed 01/29/24 01/29/24 11:05 Patient Tobacco Use Status Former Tobacco user 01/29/24 11:05 e-Cigarette/Vaping Use Never Used 01/29/24 11:05 PHQ-9: PHQ-9 Score PHQ-9: Total score 6 01/29/24 11:27 Depression Screening Interpretation: Negative Thrive Assessment: Date of Thrive Assessment Date Thrive assessed 01/29/24 01/29/24 11:27 Currently or been in a relationship where the following occur: No concerns reported Const General: no acute distress Resp Effort & Inspection: normal respiratory effort Auscultation: clear to auscultation bilaterally Cardio Rhythm: regular rhythm Heart sounds: S1 normal heart sound present and S2 normal heart sound present Back/Spine/Pelvis Other: Decreased range of motion paraspinal tenderness in the lower lumbar region left more than right, left straight leg rising 40 degrees, right straight leg rising 90 degrees. Extrem Other: Sutures removed from the base of left thumb laceration healed well Assessment and Plan Assessment & Plan (1) Sciatica: Code(s): M54.30 - Sciatica, unspecified side Plan: Meloxicam and baclofen prescribed. Patient was offered physical therapy but he declined. He will start working out at the gym Medications: New baclofen 10 mg PO BEDTIME 14 tabs 0RF meloxicam 15 mg PO DAILY 10 tabs 0RF Coding Level of Care Code Est Pt Level 3 (90622) Diagnoses Sciatica M54.30 Additional Codes NIDIA-7 Assessment Billing - NIDIA-7 Assessment Tool: NIDIA-7 Assessment 95746 ([id number])
== END 2024-01-29 11:55 | disposition home or self-care (01) ==
PROVIDERS: PCP Internal Medicine; Visit Provider Internal Medicine
DX: M54.30 Sciatica, unspecified side (principal)

== ENCOUNTER → 2024-01-29 10:55 | Outpatient (BNVA) | payer OTHER, SELFPAY | PROVIDERS: PCP Internal Medicine; Visit Provider Internal Medicine | DX: Z48.02 Encounter for removal of sutures (principal); M54.30 Sciatica, unspecified side; S61.012D Laceration without foreign body of left thumb without damage to nail, subsequent encounter; X58.XXXD Exposure to other specified factors, subsequent encounter | CPT/HCPCS: 96127 ==

== ENCOUNTER 2024-02-29 07:24 | Day surgery (SDC) | payer OTHER, SELFPAY ==
[2024-02-25 14:03] VITALS: BMI 40.5
--- NOTE | 2024-02-25 14:43 | HO.ANESPROP2 ---
Documented by User: Rossy Mercedes NP 02/25/24 14:44 HPI - Anesthesia Eval Consult details Narrative: 49yo M for Colonoscopy PMFSH Active Problems Active Problems: All Active Problems Diverticulosis (Acute) LLQ abdominal pain (Acute) Hypothyroid (Acute) Grief (Acute) Cough (Acute) Asthma (Acute) Annual physical exam (Acute) Vasectomy evaluation (Acute) Biceps tendinitis of both shoulders (Acute) LFT elevation (Acute) Heel spur (Acute) Bronchitis due to COVID-19 virus (Acute) Biceps tendinitis of both shoulders (Acute) Acute bronchitis (Acute) Shoulder pain, bilateral (Acute) Pain of right heel (Acute) Sciatica (Acute) Muscle spasm (Acute) Obesity (Acute) Impaired fasting blood sugar (Acute) Past Medical History Medical History (Updated 01/18/24 @ 00:01 by Baltazar James) Diverticulosis Annual physical exam Vasectomy evaluation Obesity Impaired fasting blood sugar Family History Family History Father HTN (hypertension) Mother No problems noted. Other Substance use disorder Surgical History Surgical History Hx of colonoscopy History of hernia surgery Social History Social History Housing: House Alcohol intake: current Alcohol intake frequency: a few times a month Patient Tobacco Use Status: Former Tobacco user Years Smoked: 2 e-Cigarette/Vaping Use: Never Used Second Hand Smoke Exposure: No Use of substances other than those prescribed or required for medical reasons: Yes Substance Use Type Other:: gummies daily for bedtime Substance Use Frequency: Daily Have you been hit, kicked, punched, or otherwise hurt by someone within the past year? If so, by whom?: No Are you DNR?: No Advance Directives: No Advance Directives Information Provided: Yes Advance Directives on File: No service: No Current occupational status: employed Cognitive needs: No Hearing needs: No Vision needs: Yes Meds Allergies Allergy/AdvReac Type Severity Reaction Status Date / Time levofloxacin [From LEVAQUIN] Allergy Intermediate NERVE PAIN Verified 01/29/24 11:04 Exam Height,Weight and Vital Signs: Height 5 ft 10 in Weight 127.913 kg Assessment and Plan Assessment Anesthesia Assessment: Chart Reviewed Documented by User: Julita Burnett MD 02/29/24 08:06 [facility] Past Medical History Medical History (Updated 01/18/24 @ 00:01 by Baltazar James) Diverticulosis Annual physical exam Vasectomy evaluation Obesity Impaired fasting blood sugar Family History Family History Father HTN (hypertension) Mother No problems noted. Other Substance use disorder Family history of problems with anesthesia: No Surgical History Surgical History Hx of colonoscopy History of hernia surgery History of Problems with Anesthesia: No Social History Social History Housing: House Alcohol intake: current Alcohol intake frequency: a few times a month Patient Tobacco Use Status: Former Tobacco user Years Smoked: 2 e-Cigarette/Vaping Use: Never Used Second Hand Smoke Exposure: No Use of substances other than those prescribed or required for medical reasons: Yes Substance Use Type Other:: gummies daily for bedtime Substance Use Frequency: Daily Have you been hit, kicked, punched, or otherwise hurt by someone within the past year? If so, by whom?: No Are you DNR?: No Advance Directives: No Advance Directives Information Provided: Yes Advance Directives on File: No service: No Current occupational status: employed Cognitive needs: No Hearing needs: No Vision needs: Yes Meds Allergies Allergy/AdvReac Type Severity Reaction Status Date / Time levofloxacin [From LEVAQUIN] Allergy Intermediate NERVE PAIN Verified 01/29/24 11:04 Exam Airway Mallampati Class: II TM Dist: >3cm Neck ROM: Full Heart: rrr Lungs: cta Assessment and Plan Assessment Anesthesia Assessment: Anesthesia Plan Discussed Final Anesthetic Review Family History of Problems with Anesthesia: No History of Problems with Anesthesia: No NPO: Yes ASA Class: III Final Preanesthetic Review: No Changes in Pt Med Stat, Meds/Allgs Chart Reviewed and Consent Obtained/Reviewed Patient Risk: Low Procedure Risk: Low Anesthetic Plan Anesthetic Plan: MAC: Disposition: Standard PACU
--- NOTE | 2024-02-29 07:46 | MHC.SHP ---
Pre-Procedural Eval Section A - 24 Hr Update-Section A only Date of Service: 02/29/24 The patient is an INPATIENT: No The patient has been examined within 24 hours of the surgical procedure. The History & Physical has been completed within 30 days and I have reviewed it.: No Section B - Complete if H&P > 30 days Chief Complaint: Surveillance for colon polyps Relevant Family History (Specify if Yes): No Relevant Social History: Tobacco Use (Former smoker) Present Medications: see Short Stay Collaborative assessment Medical History: Significant History (Diverticulosis Annual physical exam Vasectomy evaluation Obesity Impaired fasting blood sugar) History of Previous Operations: Relevant previous surgery/procedure and date(s) (Hx of colonoscopy History of hernia surgery) Allergies: Allergies Allergy/AdvReac Type Severity Reaction Status Date / Time levofloxacin [From LEVAQUIN] Allergy Intermediate NERVE PAIN Verified 01/29/24 11:04 Review of Systems Sugical H&P ROS: Negative: Constitution, Cardiovascular, Respiratory and Gastrointestinal Exam Surgical H&P Exam: Normal: Heart, Normal: Lungs, Normal: Extremities and Normal: Abdomen Plan Diagnosis/Plan: Unchanged I have reviewed the history and physical and performed a pertinent physical examination on my patient. No changes have occurred unless specified. Time Spent With Patient Time: Total time managing care of this patient today ____ minutes.
[2024-02-29 07:57] VITALS: BP 126/66; PULSE 90; RESP 16; TEMP 37.1; O2SAT 97
[2024-02-29] MEDS: Lactated Ringers 1,000 ML 100 ML IVCONT (07:59)
[2024-02-29 09:04] VITALS: BP 125/64; PULSE 96; RESP 16; TEMP 37.2; O2SAT 100
--- NOTE | 2024-02-29 09:04 | P.OPN-COLO_ITS ---
Colonoscopy Operative Note Operative Note Date of Service: 02/29/24 Narrative: COLONOSCOPY TILL CECUM Pre-op diagnosis: Surveillance of colon polyps, history of diverticulitis. Post-op diagnosis:? Diverticulosis, hemorrhoids Endoscopist:? Padma Gonzales MD Anesthesia:?MAC Consent: Indications for the procedure and potential complications of bleeding, perforation, reaction to medications and missed diagnosis were discussed with the patient and informed consent was obtained. Instrument: Olympus CF H 190 L variable stiffness adult colonoscope Monitoring: Vital signs and clinical assessment, intermittent blood pressure monitoring, continuous EKG monitoring, Pulse oximetry and Carbon Dioxide monitoring were done throughout the procedure. Please see anesthesia flowsheet. Colon withdrawl time was 19 minutes. Procedure: The patient was placed in the left lateral decubitis position and pre-procedure medications were administered. After a digital rectal examination of the ano-rectum, the video colonoscope was inserted into the rectum and advanced through the colon to the cecum. The colonoscope was slowly withdrawn in a retrograde panoramic fashion and the colon mucosa was carefully examined including a retroflexed view of the rectum. Findings and interventions are described below. Procedure Difficulty: LLQ pressure was applied to intubate the cecum Findings: Terminal Ileum: Not evaluated Cecum: Normal Ascending Colon: Normal Transverse Colon: Normal Descending Colon: Moderate diverticulosis Sigmoid Colon: Moderate diverticulosis Rectum: Normal Ano-rectum: Moderate internal hemorrhoids Colon preparation: Good after some irrigation. [place] Bowel Preparation Scale Right colon; 2 Transverse colon: 2 Left colon; 2 (0 = Unprepared colon segment with mucosa not seen due to solid stool that cannot be cleared. 1 = Portion of mucosa of the colon segment seen, but other areas of the colon segment not well seen due to staining, residual stool and/or opaque liquid. 2 = Minor amount of residual staining, small fragments of stool and/or opaque liquid, but mucosa of colon segment seen well. 3 = Entire mucosa of colon segment seen well with no residual staining, small fragments of stool or opaque liquid) Impression and Post Procedure Diagnosis: Colonoscopy Findings: No polyps were detected Moderate diverticulosis seen in the left colon Moderate hemorrhoids on retroflexed exam. Plan: Pt has a FU appointment on 03/14/24 with Bev Berry NP Repeat Colonoscopy in 5 years due to a hx of adenomatous colon polyps. Above findings were reviewed with the patient and relevant handouts were given and the discharge area.
[2024-02-29 09:19] VITALS: BP 139/76; PULSE 94; RESP 16; TEMP 36.6; O2SAT 98
== END 2024-02-29 09:34 | disposition home or self-care (01) ==
PROVIDERS: PCP Internal Medicine; Visit Provider Internal Medicine Gastroenterology
PROC: 0DJD8ZZ Inspection of Lower Intestinal Tract, Via Natural or Artificial Opening Endoscopic (ICD-10-PCS; CPT 45378; principal; 2024-02-29 08:30)
DX: Z12.11 Encounter for screening for malignant neoplasm of colon (principal); Z86.0101 Personal history of adenomatous and serrated colon polyps; K57.30 Diverticulosis of large intestine without perforation or abscess without bleeding; K64.8 Other hemorrhoids; Z87.19 Personal history of other diseases of the digestive system; R73.01 Impaired fasting glucose; J45.909 Unspecified asthma, uncomplicated; E66.9 Obesity, unspecified; Z68.41 Body mass index [BMI] 40.0-44.9, adult; Z88.1 Allergy status to other antibiotic agents; Z98.890 Other specified postprocedural states; Z87.891 Personal history of nicotine dependence
CPT/HCPCS: 45378; J2003; J2704

== ENCOUNTER → 2024-02-29 07:24 | Outpatient (BNV) | payer OTHER, SELFPAY | PROVIDERS: PCP Internal Medicine; Visit Provider Internal Medicine Gastroenterology | DX: Z12.11 Encounter for screening for malignant neoplasm of colon (principal); Z86.0100 Personal history of colon polyps, unspecified; K57.90 Diverticulosis of intestine, part unspecified, without perforation or abscess without bleeding; K64.8 Other hemorrhoids | CPT/HCPCS: 45378 ==

== ENCOUNTER 2024-03-03 08:16 | Outpatient (AMB) | payer OTHER, SELFPAY ==
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
[2024-03-03 08:47] VITALS: BP 116/78; PULSE 93; TEMP 36.8; O2SAT 98; BMI 39.5
== END 2024-03-03 09:44 | disposition home or self-care (01) ==
PROVIDERS: PCP Internal Medicine; Visit Provider Registered Nurse
DX: Z13.9 Encounter for screening, unspecified (principal); J45.41 Moderate persistent asthma with (acute) exacerbation; R06.00 Dyspnea, unspecified

== ENCOUNTER 2024-03-03 08:16 | Outpatient (REF) | payer OTHER, SELFPAY ==
[2024-03-03 12:28] LABS: Influenza A PCR NEGATIVE (Negative); Influenza B PCR NEGATIVE (Negative); Resp Syncy Virus RNA Qual PCR NEGATIVE (Negative); SARS COV2 PCR INHOUSE NEGATIVE (Negative)
== END 2024-03-03 08:17 | disposition home or self-care (01) ==
LOC: HO.LAB 08:16
PROVIDERS: PCP Internal Medicine; Visit Provider Registered Nurse
DX: R09.89 Other specified symptoms and signs involving the circulatory and respiratory systems (principal); J45.41 Moderate persistent asthma with (acute) exacerbation; R06.00 Dyspnea, unspecified; Z13.9 Encounter for screening, unspecified
CPT/HCPCS: 0241U; 87880; 94640

== ENCOUNTER 2024-03-18 13:48 | Outpatient (AMB) | payer OTHER, SELFPAY ==
[2024-03-18 13:59] VITALS: BP 106/60; PULSE 94; O2SAT 98; BMI 39.3
--- NOTE | 2024-03-18 13:59 | MHC.PC.OV ---
Vital Signs 03/18/24 13:59 Height 5 ft 10 in Weight 274 lb BMI 39.3 BP 106/60 Blood Pressure Location Lt brachial Position Sitting Pulse 94 Pulse Source Pulse Oximeter Pulse Oximetry (%) 98 Oxygen Delivery Method Room Air Intake Visit Reasons: Asthma and Loss of breath Intake Note: Pt is here today c/o asthma and SOB Allergies levofloxacin [From LEVAQUIN] Allergy (Intermediate, Verified 03/03/24 08:48) NERVE PAIN Medication List - Last Reconciled 03/18/24 by Heidi Galindo MD albuterol sulfate 90 mcg/actuation 2 puffs inhalation Q4-6H PRN mometasone-formoterol 200-5 mcg/actuation (Dulera) 2 puffs inhalation BID tiotropium bromide 1.25 mcg/actuation (Spiriva Respimat) 2 puffs inhalation DAILY Tobacco use date assessed: 03/18/24 Dental Screening Dental Screen Date: 03/18/24 Did you have a dental visit in the last 12 months?: Yes Did you have a dental problem in the last 6 months where you did not have access to dental care?: No Was dental information given to patient?: Patient has dentist HPI Asthma and Loss of breath HPI Details Pt c/o persists productive cough, chest tightness, SOB, fatigue, chills for 2 weeks. Patient took a taper of prednisone 2 weeks ago was only temporary relief. He has been using Dulera and Spiriva regularly [facility] Medical History (Updated 01/18/24 @ 00:01 by Baltazar James) Diverticulosis Annual physical exam Vasectomy evaluation Obesity Impaired fasting blood sugar Surgical History Hx of colonoscopy History of hernia surgery Family History Father HTN (hypertension) Mother No problems noted. Other Substance use disorder Social History Housing: House Alcohol intake: current Alcohol intake frequency: a few times a month Patient Tobacco Use Status: Former Tobacco user Years Smoked: 2 e-Cigarette/Vaping Use: Never Used Second Hand Smoke Exposure: No service: No Current occupational status: employed Cognitive needs: No Hearing needs: No Vision needs: Yes Questionnaire Thrive Questionnaire Date Thrive assessed: 01/27/24 I am a: Patient What is your living situation today?: I have a steady place to live Within the past 12 months, did the food you bought not last and you didn't have the money to get more?: Never true Within the past 12 months, did you worry whether your food would run out before you got money to buy more?: Never true Do you have trouble paying for medicines?: No Do you have trouble getting transportation to medical appointments?: No Do you have trouble paying your heating and electricity bill?: No Do you have trouble taking care of your child, family member or friend?: No Do you have trouble with day-to-day activities such as bathing, preparing meals, shopping, managing finances, etc.?: No Are you currently unemployed and looking for a job?: No Are you interested in more education?: No Please select the resources that you would like help with: None Currently or been in a relationship where the following occur: No concerns reported THRIVE Score: 0 NIDIA-7 AMB Questionnaire NIDIA-7 Date NIDIA - 7 assessed: 01/29/24 Source: Developed by Drs. Devonte Michel, Cari Clement, Troy Ram and colleagues, with an educational melanie from [employer]. Review of Systems Const All systems reviewed & are unremarkable except as noted in HPI and below ENT Reports no additional complaints Card Reports no additional complaints Resp Reports no additional complaints GI Reports no additional complaints Reports no additional complaints Physical exam (Primary Care) Vital Signs: Last Vital Signs Pulse 94 03/18/24 13:59 BP 106/60 03/18/24 13:59 Pulse Ox 98 03/18/24 13:59 Oxygen Delivery Method Room Air 03/18/24 13:59 BMI result Body Mass Index 39.3 Tobacco/Smoking Status: Tobacco use Status Tobacco use date assessed 03/18/24 03/18/24 14:04 Patient Tobacco Use Status Former Tobacco user 03/18/24 14:04 e-Cigarette/Vaping Use Never Used 03/18/24 14:04 Thrive Assessment: Date of Thrive Assessment Date Thrive assessed 01/27/24 03/18/24 14:04 Currently or been in a relationship where the following occur: No concerns reported Const General: no acute distress HENMT Ears: hearing grossly normal bilaterally Face and sinus: Yes normal facial exam Eyes General: appearance normal, both eyes and all related structures Neck Neck: Yes supple Resp Effort & Inspection: able to speak in complete sentences Auscultation: diminished lung sounds Cardio Rhythm: regular rhythm Heart sounds: S1 normal heart sound present and S2 normal heart sound present Coding Level of Care Code Est Pt Level 3 (28122) Diagnoses Asthma J45.909 Cough R05.9 Assessment & Plan Assessment & Plan (1) Asthma: Code(s): J45.909 - Unspecified asthma, uncomplicated Category: Medical Plan: Continue inhalers (2) Cough: Code(s): R05.9 - Cough, unspecified Category: Medical Plan: Check chest x-ray, Z-Ludwin and prednisone prescribed and supportive care discussed with the patient , check basic blood work Orders: Orders Complete Blood Count Auto Diff Today J45.909 - Unspecified asthma, uncomplicated, R05.9 - Cough, unspecified D Dimer High Sensitivity Today J45.909 - Unspecified asthma, uncomplicated, R05.9 - Cough, unspecified B Type Natriuretic Peptide Today J45.909 - Unspecified asthma, uncomplicated, R05.9 - Cough, unspecified Comprehensive Met. Panel Today J45.909 - Unspecified asthma, uncomplicated, R05.9 - Cough, unspecified XR chest 1V Today J45.909 - Unspecified asthma, uncomplicated, R05.9 - Cough, unspecified Medications: New azithromycin For 250 mg dose pack: take 500 mg today (day 1), then 250 mg for 4 days (days 2-5) PO 6 tabs 0RF prednisone Two tablets p.o. q.d. for 4 days then 1 tablet p.o. q.d. for 4 days orally daily; 12 tabs 0RF benzonatate 200 mg PO TID 30 caps 0RF Refilled albuterol sulfate 90 mcg/actuation 2 puffs inhalation Q4-6H PRN 25.5 grams 3RF shortness of breath or wheezing
== END 2024-03-18 14:36 | disposition home or self-care (01) ==
PROVIDERS: PCP Internal Medicine; Visit Provider Internal Medicine
DX: J45.909 Unspecified asthma, uncomplicated (principal); R05.9 Cough, unspecified

== ENCOUNTER 2024-03-18 13:48 | Outpatient (REF) | payer OTHER, SELFPAY ==
[2024-03-18 16:19] LABS: MANUAL DIFF FLAG NO
[2024-03-18 16:25] LABS: Basophils Absolute Auto 0.1 X10*3/uL (0.0-0.2); Basophils Percent Auto 0.7 % (0-2); Eosinophils Absolute Auto 0.3 X10*3/uL (0.0-0.4); Eosinophils Percent Auto 3.1 % (0-4); Hematocrit 38.4 % (42.0-52.0); Hemoglobin 13.3 g/dl (14.0-18.0); Imm Gran Abs Auto 0.06 X10*3/uL (0.00-0.03); Imm Gran Pct Auto 0.7 % (0.0-0.4); Lymphocytes Absolute Auto 2.6 X10*3/uL (1.2-4.9); Lymphocytes Percent Auto 29.8 % (20-40); Mean Corpuscular HGB Conc 34.6 g/dl (31.0-36.0); Mean Corpuscular Hemoglobin 30.7 pg (27.0-33.0); Mean Corpuscular Volume 88.7 fL (80.0-98.0); Mean Platelet Volume 10.1 fL (9.4-12.4); Monocytes Absolute Auto 0.8 X10*3/uL (0.1-1.2); Monocytes Percent Auto 8.6 % (2-11); Neutrophils Percent Auto 57.1 % (45-73); Platelet Count 331 X10*3/uL (160-400); Red Blood Count 4.33 X10*6/uL (4.60-5.80); White Blood Count 8.8 X10*3/uL (4.8-10.8)
[2024-03-18 16:33] LABS: Alanine Aminotransferase 28 U/L (0-40); Albumin Level 4.2 g/dL (3.5-5.0); Alkaline Phosphatase 83 U/L (39-117); Anion Gap 14 (12-20); Aspartate Amino Transferase 25 U/L (5-37); Bilirubin Total 0.7 mg/dL (0.0-1.0); Blood Urea Nitrogen 8 mg/dL (9-16); Calcium 9.1 mg/dL (8.4-10.2); Carbon Dioxide 25 mmol/L (22-29); Chloride 104 mmol/L (96-108); Estimated Glomerular Filt Rate > 60; Glucose Random 110 mg/dL (60-115); Potassium 3.7 mmol/L (3.3-5.1); Sodium 139 mmol/L (135-145); Total Protein 7.5 g/dL (6.5-8.0)
[2024-03-18 16:34] LABS: D Dimer High Sensitivity < 150 NG/ML
[2024-03-18 17:06] LABS: B Type Natriuretic Peptide < 10 pg/mL (<100)
== END 2024-03-18 13:49 | disposition home or self-care (01) ==
LOC: HO.HMGCX 13:48
PROVIDERS: PCP Internal Medicine; Visit Provider Internal Medicine
DX: R05.9 Cough, unspecified (principal); J45.909 Unspecified asthma, uncomplicated
CPT/HCPCS: 36415; 71046; 80053; 83880; 85025; 85379

== ENCOUNTER → 2024-05-16 12:50 | Outpatient (BNVA) | payer OTHER, SELFPAY | PROVIDERS: PCP Internal Medicine; Visit Provider Internal Medicine ==

== ENCOUNTER 2024-05-17 08:04 | Outpatient (REF) | payer OTHER, SELFPAY | END 2024-05-17 08:05 | disposition home or self-care (01) | LOC: HO.LAB 08:04 | PROVIDERS: PCP Internal Medicine; Visit Provider Physician Assistant | DX: J22 Unspecified acute lower respiratory infection (principal) | CPT/HCPCS: 94640 ==

== ENCOUNTER 2024-05-17 08:04 | Outpatient (AMB) | payer OTHER, SELFPAY ==
[2024-05-17 08:11] VITALS: BP 120/82; PULSE 95; TEMP 36.8; O2SAT 98; BMI 41.5
--- NOTE | 2024-05-17 08:11 | AM.OFFWIN_ITS ---
Intake Vital Signs 05/17/24 08:11 Height 5 ft 10 in Weight 289 lb BMI 41.5 BP 120/82 Blood Pressure Location Lt brachial Pulse 95 Pulse Source Pulse Oximeter Temp 98.2 F Temp Source Oral Pulse Oximetry (%) 98 Oxygen Delivery Method Room Air Intake Visit Reasons: EP-sob, cough, sinus/chest congestion, sweats Intake Note: Pt is here today c/o SOB and coughing sinus/chest congestion Patient Tobacco Use Status: Former Tobacco user Allergies levofloxacin [From LEVAQUIN] Allergy (Intermediate, Verified 05/17/24 08:24) NERVE PAIN HPI HPI Comments History of Present Illness Details The patient is a 49-year-old male presenting with cough with phlegm production and worsening respiratory symptoms.- Persistent cough with white phlegm production experienced once or twice daily in the morning for over a week, worsening recently.- Possible association with a similar condition experienced by patient's spouse who had sinusitis and bronchitis treated with antibiotics and steroids.- History of bronchitis, exacerbated [id number] infection.- Subjective sensation of febrile episodes and chills; acknowledges having chills but did not monitor body temperature.- Reports nasal congestion and pressure worsening on coughing, though specific sinus pain wasn't mentioned explicitly.- Insurance complications delayed follow-up, impacting potential treatment options. Physical ExamGeneral: Cooperative, healthy appearing, comfortable and no acute distress Orientation/consciousness: Patient oriented x3 Limitations: No limitations Head: Normal to inspection Ears: Hearing grossly normal bilaterally, external ears normal and TM's normal bilaterally Nose: Normal external nose present, Normal nares present and No nasal discharge present Face and sinus: Normal facial exam and Yes sinuses tender Mouth: Normal oral and palatal mucosa present and moist mucous membranes Throat: Yes tonsils normal, Yes uvula midline. Posterior oropharynx erythema Eyes: Appearance normal, both eyes and all related structures Neck: Normal visual inspection Respiratory: Clear but dim to auscultation bilaterally. Normal respiratory effort, able to speak in complete sentences, Actively coughing, no respiratory distress, not tachypneic, no tripod positioning and no use of accessory muscles Cardiovascular: Regular rate and rhythm. Normal S1 and S2 Skin: No rashes or lesions noted Neuro: Patient oriented x3 Extremities: Normal to inspection and Yes no clubbing, cyanosis or edema [facility] Medical History (Updated 05/17/24 @ 08:59 by Tete Joseph PA-C) Diverticulosis Annual physical exam Vasectomy evaluation Obesity Impaired fasting blood sugar Surgical History Hx of colonoscopy History of hernia surgery Family History Father HTN (hypertension) Mother No problems noted. Other Substance use disorder Social History Housing: House Alcohol intake: current Alcohol intake frequency: a few times a month Patient Tobacco Use Status: Former Tobacco user Years Smoked: 2 e-Cigarette/Vaping Use: Never Used Second Hand Smoke Exposure: No service: No Current occupational status: employed Cognitive needs: No Hearing needs: No Vision needs: Yes Review of Systems Const All systems reviewed & are unremarkable except as noted in HPI and below Physical Exam Vital Signs: Last Vital Signs Temp 98.2 F 05/17/24 08:11 Pulse 95 05/17/24 08:11 BP 120/82 05/17/24 08:11 Pulse Ox 98 05/17/24 08:11 Oxygen Delivery Method Room Air 05/17/24 08:11 BMI result Body Mass Index 41.5 Office Procedures Nebulizer Treatment Nebulizer Treatment [id number]-Qlixysyrl/MDI RX initial, or Nebulizer Subsequent Treatment Office Meds ipratropium 0.5 mg-albuterol 3 mg (2.5 mg base)/3 mL nebulization soln Performing Provider: Tete Joseph PA-C Performing Location: [facility] [place] [facility] Administered by: Tete Joseph PA-C on 05/17/24 08:38 Dose Route Admin Location Dispensed Lot Number Expiration Date [facility] Sports Manager 3 mL inhalation 3 mL [id number] 07/08/25 21628-354-26 [employer] Assessment & Plan Assessment & Plan (1) Lower respiratory infection (e.g., bronchitis, pneumonia, pneumonitis, pulmonitis): Code(s): J22 - Unspecified acute lower respiratory infection Plan: VSS, pt well appearing, lungs a bit dim but no wheezing. Given the recurrent nature of the cough with phlegm post-COVID infection and previous bronchitis, I suspect a viral bronchitis and possible sinusitis may be present. Treatment will initially focus on symptomatic management using n ebulizer therapy with a bronchodilator in office to provide immediate relief of wheezing and improve airflow. Medrol dose pack sent to pharmacy as well for sob symptoms. Additionally, a chest x-ray is planned to evaluate for any intermediate findings that could suggest pneumonia, and simultaneous testing for pathogens such as influenza, COVID-19, and RSV will be carried out via nasal swabs. The diagnostic angle will help delineate any underlying infections and guide further treatments accordingly, considering the patient's history and symptoms reported. Work note provided. Patient was informed and verbally consented to the use of an ambient scribe for clinic note documentation during this visit Orders: Orders SARS-CoV2/FLU/RSV Today J06.9 - Acute upper respiratory infection, unspecified AMB Nebulizer Treatment Today J06.9 - Acute upper respiratory infection, unspecified XR chest 2V Today R05.9 - Cough, unspecified Medications: New methylprednisolone PO PER PKG DIR for 6 days 21 ea 0RF Coding Level of Care Code Est Pt Level 4 (26290) Diagnoses Lower respiratory infection (e.g., bronchitis, pneumonia, pneumonitis, pulmonitis) J22 CPT Codes Nebulizer Treatment - Nebulizer Treatment, initial or subsequent: 80661- Nebulizer/MDI RX initial, or Nebulizer Subsequent Treatment ([id number])
== END 2024-05-17 09:13 | disposition home or self-care (01) ==
PROVIDERS: PCP Internal Medicine; Visit Provider Physician Assistant
DX: J06.9 Acute upper respiratory infection, unspecified (principal)

== ENCOUNTER 2024-05-17 08:57 | Outpatient (REF) | payer OTHER, SELFPAY ==
--- NOTE | ~2024-05-17 | XR_ITS ---
EXAMINATION: XR CHEST CLINICAL INFORMATION: R05.9 - Cough, unspecified COMPARISON: None available. TECHNIQUE: 2 views of the chest were obtained. FINDINGS: No significant abnormality is noted involving the heart, lungs, mediastinum, bony thorax or soft tissues. XR/XR chest 2V IMPRESSION: Unremarkable chest examination. Electronically signed by: Gaeb Gimenez MD 05/17/2024 09:38 AM [facility]
[2024-05-17 11:39] LABS: Influenza A PCR NEGATIVE (Negative); Influenza B PCR NEGATIVE (Negative); Resp Syncy Virus RNA Qual PCR NEGATIVE (Negative); SARS COV2 PCR INHOUSE NEGATIVE (Negative)
== END 2024-05-17 08:58 | disposition home or self-care (01) ==
LOC: HO.HMGCX 08:57
PROVIDERS: PCP Internal Medicine; Visit Provider Physician Assistant
DX: Z20.828 Contact with and (suspected) exposure to other viral communicable diseases (principal); R05.9 Cough, unspecified; R06.9 Unspecified abnormalities of breathing
CPT/HCPCS: 0241U; 71046

== ENCOUNTER → 2024-05-17 09:01 | Outpatient (BNV) | payer OTHER, SELFPAY | PROVIDERS: PCP Internal Medicine; Visit Provider Radiology Diagnostic Radiology | DX: R05.9 Cough, unspecified (principal) | CPT/HCPCS: 71046 ==

== ENCOUNTER 2024-08-09 15:17 | Outpatient (REF) | payer OTHER, SELFPAY ==
--- OUTSIDE RECORDS SUMMARY | 2024-08-09 18:08 | XMS_ITS | Encounter Summary ---
Author Organization [facility] Address [facility] [place] [address] Care Team Providers Care Investment Advisor Name Role Phone Chyna Blandon MD Primary Care Provider [phone] Encounter Details Date Type Department Care Team Description 06/18/2017 Orders Only Orthopedics-[address] [address] Alex Hinson PA-C Social History Tobacco Use Types Packs/Day Years Used Date Smoking Tobacco: Former Cigarettes 0.5 4 Q uit: 05/11/1991 Smokeless Tobacco: Never Comments:quit 1991 Alcohol Use Standard Drinks/Week Comments Yes 0 (1 standard drink = 0.6 oz pur e alcohol) 3 drinks per mweek Sex Assigned at Date Recorded Not on file documented as of this encounter Plan of Treatment Not on file documented as of this encounter Visit Diagnoses Not on filedocumented in this encounter Care Teams Investment Advisor Relationship Specialty Start Date End Date Chyna Blandon MD [address] [place] [id number] PCP - General 04/13/01 documented as of this encounter
--- OUTSIDE RECORDS SUMMARY | 2024-08-09 18:08 | XMS_ITS | Encounter Summary ---
Author Organization [facility] Address [address] [place] [address] Care Team Providers Care K 9 Police Officer Name Role Phone Chyna Blandon MD Primary Care Provider [phone] Encounter Details Date Type Department Care Team Description 08/28/2014 Hospital Medical Records [address] [place] [address] Carli, Jeanne, DO Social History Tobacco Use Types Packs/Day Years [...] on filedocumented in this encounter Care Teams K 9 Police Officer Relationship Specialty Start Date End Date Chyna Blandon MD [address] [place], [place] [id number] PCP - General 04/13/01 documented as of this encounter
--- OUTSIDE RECORDS SUMMARY | 2024-08-09 18:08 | XMS_ITS | Encounter Summary ---
Author Organization [facility] Address [facility] [place] [address] Care Team Providers Care Sales And Leasing Consultant Name Role Phone Chyna Blandon MD Primary Care Provider [phone] Reason for Visit * Reason Onset Date Comments Provider Call Back 06/12/2017 Encounter Details Date Type Department Care Team Description 06/12/2017 Telephone Orthopedics-[address] [address] Alex Hinson PA-C Provider Call Back Social History Tobacco Use Types Packs/Day Years Used Date Smoking Tobacco: Former Cigarettes 0.5 4 Q uit: 05/11/1991 Smokeless Tobacco: Never Comments:quit 1991 Alcohol Use Standard Drinks/Week Comments Yes 0 (1 standard drink = 0.6 oz pur e alcohol) 3 drinks per mweek Sex Assigned at Date Recorded Not on file documented as of this encounter Miscellaneous Notes * Telephone Encounter - Missy Berger - 06/12/2017 10:09 AM EST Patient called stating that he was seen by and was given a cortisone shot. Pt states that it did help a little bit but it did not take the pain away and eventually pain back just what its like before he had the cortisone. Pt was advised to call the office if that happen to let provider know so maybe he can order an MRI. Pls review. Pt can be reached at [phone]. documented in this encounter Plan of Treatment Not on file documented as of this encounter Visit Diagnoses Not on filedocumented in this encounter Care Teams Sales And Leasing Consultant Relationship Specialty Start Date End Date Chyna Blandon MD [address] [place] [id number] PCP - General 04/13/01 documented as of this encounter
--- OUTSIDE RECORDS SUMMARY | 2024-08-09 18:08 | XMS_ITS | Encounter Summary ---
Author Organization [facility] Address [address] [place] [address] Care Team Providers Care Manager Of Training Name Role Phone Chyna Blandon MD Primary Care Provider Encounter Details Date Type Department Care Team Description 06/13/2014 Hospital Medical Records [address] [place] [address] Carli, Jeanne, DO Social History Tobacco Use [...] on filedocumented in this encounter Care Teams Manager Of Training Relationship Specialty Start Date End Date Chyna Blandon MD [address] [place], [place] [id number] PCP - General 04/13/01 documented as of this encounter
--- OUTSIDE RECORDS SUMMARY | 2024-08-09 18:08 | XMS_ITS | Encounter Summary ---
Author Organization [facility] Address [address] [place] [address] Care Team Providers Care Judicial Law Clerk Name Role Phone Chyna Blnadon MD Primary Care Provider [phone] Encounter Details Date Type Department Care Team Description 10/19/2009 Fruit Raiser Report Medical Records [address] [place] [address] Jenn Aquino [address] [place] [address] Social History Tobacco Use Types Packs/Day Years Used Date Smoking Tobacco: Former Comments:quit 1991 Alcohol Use Standard Drinks/Week Comments No 0 (1 standard drink = 0.6 oz pur e alcohol) Sex Assigned at Date Recorded Not on file documented as of this encounter Plan of Treatment Not on file documented as of this encounter Visit Diagnoses Not on filedocumented in this encounter Care Teams Judicial Law Clerk Relationship Specialty Start Date End Date Chyna Blandon MD [address] [place] [address] PCP - General 04/13/01 documented as of this encounter
[2024-08-11 10:18] LABS: Rubella IgG Antibody >33.00 Index
== END 2024-08-09 15:18 | disposition home or self-care (01) ==
LOC: HO.HMGCLDS 15:17
PROVIDERS: PCP Internal Medicine; Visit Provider Internal Medicine
DX: Z78.9 Other specified health status (principal)
CPT/HCPCS: 36415; 86735; 86762; 86765

== ENCOUNTER 2024-08-24 11:42 | Outpatient (AMB) | payer OTHER, SELFPAY ==
[2024-08-24 12:05] VITALS: BP 118/76; PULSE 74; RESP 18; TEMP 36.6; O2SAT 98; BMI 42.0
--- NOTE | 2024-08-24 12:05 | MHC.PC.OV ---
Vital Signs 08/24/24 12:05 Height 5 ft 10 in Weight 293 lb BMI 42.0 BP 118/76 Blood Pressure Location Rt brachial Position Sitting Respiration 18 Pulse 74 Pulse Source Pulse Oximeter Temp 97.9 F Temp Source Oral Pulse Oximetry (%) 98 Oxygen Delivery Method Room Air Intake Visit Reasons: Knee pain Intake Note: Pt is here today for a sick visit. Pt c/o L knee pain on and off and has been constant for last 2 weeks. Pt also c/o bilateral shoulder pain. Pt states that his noticed that he snores at night and stops breathing at times. Allergies levofloxacin [From LEVAQUIN] Allergy (Intermediate, Verified 08/24/24 12:11) NERVE PAIN Medication List - Last Reconciled 08/24/24 by Heidi Galindo MD albuterol sulfate 90 mcg/actuation 2 puffs inhalation Q4-6H PRN mometasone-formoterol 200-5 mcg/actuation (Dulera) 2 puffs inhalation BID tiotropium bromide 1.25 mcg/actuation (Spiriva Respimat) 2 puffs inhalation DAILY Tobacco use date assessed: 08/24/24 Dental Screening Dental Screen Date: 08/24/24 Did you have a dental visit in the last 12 months?: Yes Did you have a dental problem in the last 6 months where you did not have access to dental care?: No Was dental information given to patient?: Patient has dentist HPI Knee pain HPI Details Pt c/o L anterior knee pain worse for 2 weeks when walking up and down the stairs. Patient denies any injury joint swelling or stiffness. Chronic asthma stable on inhalers [facility] Medical History (Updated 08/24/24 @ 12:59 by Heidi Galindo MD) Diverticulosis Annual physical exam Vasectomy evaluation Obesity Impaired fasting blood sugar Surgical History Hx of colonoscopy History of hernia surgery Family History Father HTN (hypertension) Mother No problems noted. Other Substance use disorder Social History Housing: House Alcohol intake: current Alcohol intake frequency: a few times a month Patient Tobacco Use Status: Former Tobacco user Years Smoked: 2 e-Cigarette/Vaping Use: Never Used Second Hand Smoke Exposure: No service: No Current occupational status: employed Cognitive needs: No Hearing needs: No Vision needs: Yes Questionnaire PHQ-9 Over the last 2 weeks, how often have you been bothered by any of the following problems? 1. Little interest or pleasure in doing things: several days 2. Feeling down, depressed, or hopeless: several days 3. Trouble falling or staying asleep, or sleeping too much: several days 4. Feeling tired or having little energy: several days 5. Poor appetite or overeating: several days 6. Feeling bad about yourself - or that you are a failure or have let yourself or your family down: not at all 7. Trouble concentrating on things, such as reading the newspaper or watching television: several days 8. Moving or speaking so slowly that other people could have noticed. Or the opposite - being so fidgety or restless that you have been moving around a lot more than usual: not at all 9. Thoughts that you would be better off or of hurting yourself in some way: not at all Total score: 6 Depression Screening Interpretation: Negative Depression Screening Done: Yes 44190 - PHQ-9 Billing: Yes Source: Developed by Drs. Devonte Michel, Cari Clement, Troy Ram and colleagues, with an educational melanie from [employer]. Thrive Questionnaire Date Thrive assessed: 08/24/24 I am a: Patient What is your living situation today?: I have a steady place to live Within the past 12 months, did the food you bought not last and you didn't have the money to get more?: Never true Within the past 12 months, did you worry whether your food would run out before you got money to buy more?: Never true Do you have trouble paying for medicines?: No Do you have trouble getting transportation to medical appointments?: No Do you have trouble paying your heating and electricity bill?: No Do you have trouble taking care of your child, family member or friend?: No Do you have trouble with day-to-day activities such as bathing, preparing meals, shopping, managing finances, etc.?: No Are you currently unemployed and looking for a job?: No Are you interested in more education?: No Please select the resources that you would like help with: None Currently or been in a relationship where the following occur: No concerns reported THRIVE Score: 0 AUDIT C Alcohol Use Questionnaire (AUDIT-C) 1. How often do you have a drink containing alcohol?: 2-4 times a month 2. How many drinks containing alcohol do you have on a typical day when you are drinking?: 1 or 2 3. How often do you have six or more drinks on one occasion?: Less than monthly Total Score: 3 NIDIA-7 AMB Questionnaire NIDIA-7 Date NIDIA - 7 assessed: 08/24/24 Feeling nervous, anxious, or on edge: 0 = Not at all Not being able to stop or control worryin = Not at all Worrying too much about different things: 0 = Not at all Trouble relaxin = Not at all Being so restless that it is hard to sit still: 0 = Not at all Becoming easily annoyed or irritable: 0 = Not at all Feeling afraid as if something awful might happen: 0 = Not at all Total NIDIA-7 score (0-4 normal; 5-9 mild; 10-14 moderate; 15-21 severe): 0 Source: Developed by Drs. Devonte Michel, Cari Clement, Troy Ram and colleagues, with an educational melanie from [employer]. NIDIA-7 Assessment Billing NIDIA-7 Assessment Tool: NIDIA-7 Assessment 12418 Review of Systems Const All systems reviewed & are unremarkable except as noted in HPI and below ENT Reports no additional complaints Card Reports no additional complaints Resp Reports no additional complaints GI Reports no additional complaints Physical exam (Primary Care) Vital Signs: Last Vital Signs Temp 97.9 F 08/24/24 12:05 Pulse 74 08/24/24 12:05 Resp 18 08/24/24 12:05 BP 118/76 08/24/24 12:05 Pulse Ox 98 08/24/24 12:05 Oxygen Delivery Method Room Air 08/24/24 12:05 BMI result Body Mass Index 42.0 Tobacco/Smoking Status: Tobacco use Status Tobacco use date assessed 08/24/24 08/24/24 12:13 Patient Tobacco Use Status Former Tobacco user 08/24/24 12:13 e-Cigarette/Vaping Use Never Used 08/24/24 12:13 PHQ-9: PHQ-9 Score PHQ-9: Total score 6 08/24/24 12:13 Depression Screening Interpretation: Negative Thrive Assessment: Date of Thrive Assessment Date Thrive assessed 08/24/24 08/24/24 12:13 Currently or been in a relationship where the following occur: No concerns reported HENMT Head: Yes normal to inspection Neck Neck: Yes supple Resp Effort & Inspection: normal respiratory effort Auscultation: clear to auscultation bilaterally Cardio Rhythm: regular rhythm Heart sounds: S1 normal heart sound present and S2 normal heart sound present Extrem Other: There is reproducible tenderness over suprapatellar region of the left knee and no soft tissue swelling erythema warmth, there is slightly decreased range of motion of the left knee joint Coding Level of Care Code Est Pt Level 3 (39331) Diagnoses Knee pain, left M25.562 Sleep apnea G47.30 Additional Codes NIDIA-7 Assessment Billing - NIDIA-7 Assessment Tool: NIDIA-7 Assessment 99491 ([id number]) PHQ-9 - 16897 - PHQ-9 Billing: Yes ([id number]) Assessment & Plan Assessment & Plan (1) Knee pain, left: Code(s): M25.562 - Pain in left knee Category: Medical Plan: Obtain x-ray of left knee, prednisone taper as prescribed patient will be referred to physical therapy (2) Sleep apnea: Comment: Witnessed apnea Code(s): G47.30 - Sleep apnea, unspecified Category: Medical Plan: Schedule home sleep study Orders: Orders PT Evaluation and Treatment Today M25.562 - Pain in left knee RT home sleep study Today G47.30 - Sleep apnea, unspecified XR knee LT 2V Today M25.562 - Pain in left knee Medications: New prednisone Four tablets p.o. q.d. for 3 days then 3 tablets p.o. q.d. for 3 days and 2 tablets p.o. q.d. for 3 days then 1 tablet p.o. q.d. for 3 days 10 mg PO DAILY 30 tabs 0RF
--- OUTSIDE RECORDS SUMMARY | 2024-08-24 14:10 | XMS_ITS | Encounter Summary ---
Author Organization [facility] Address [address] [place] [address] Care Team Providers Care Stunt Performer Name Role Phone Chyna Balndon MD Primary Care Provider [phone] Encounter Details Date Type Department Care Team Description 08/28/2014 Hospital Medical Records [address] [place] [address] Carli, Jeanne, DO Social History Tobacco Use [...] on filedocumented in this encounter Care Teams Stunt Performer Relationship Specialty Start Date End Date Chyna Blandon MD [address] [place], [place] [phone] PCP - General 04/13/01 documented as of this encounter
--- OUTSIDE RECORDS SUMMARY | 2024-08-24 14:10 | XMS_ITS | Encounter Summary ---
Author Organization [facility] Address [address] [place] [address] Care Team Providers Care Tectonophysicist Name Role Phone Chyna Blandon MD Primary Care Provider [phone] Encounter Details Date Type Department Care Team Description 10/19/2009 Streetsweeper Operator Report Medical Records [address] [place] [address] Jenn Aquino [address] [place] [address] Social History Tobacco Use Types Packs/Day Years [...] on filedocumented in this encounter Care Teams Tectonophysicist Relationship Specialty Start Date End Date Chyna Blandon MD [address] [place] [address] PCP - General 04/13/01 documented as of this encounter
--- OUTSIDE RECORDS SUMMARY | 2024-08-24 14:10 | XMS_ITS | Encounter Summary ---
Author Organization [facility] Address [address] [place] [address] Care Team Providers Care Tower Dragline Operator Name Role Phone Chyna Blandon MD Primary Care Provider [phone] Encounter Details Date Type Department Care Team Description 06/13/2014 Hospital Medical Records [address] [place] [address] Carli, Jeanne, DO Social History Tobacco Use [...] on filedocumented in this encounter Care Teams Tower Dragline Operator Relationship Specialty Start Date End Date Chyna Blandon MD [address] [place], [place] [phone] PCP - General 04/13/01 documented as of this encounter
--- OUTSIDE RECORDS SUMMARY | 2024-08-24 14:10 | XMS_ITS | Encounter Summary ---
Author Organization [facility] Address [facility] [place] [address] Care Team Providers Care Night Worker Name Role Phone Chyna Blandon MD Primary Care Provider [phone] Reason for Visit * Reason Onset Date Comments Provider Call Back 06/12/2017 Encounter Details Date Type Department Care Team Description 06/12/2017 Telephone Orthopedics-[address] [address] Alex Hinson PA-C Provider Call Back Social [...] Pls review. Pt can be reached at [phone]. documented in this encounter Plan of Treatment Not on file documented as of this encounter Visit Diagnoses Not on filedocumented in this encounter Care Teams Night Worker Relationship Specialty Start Date End Date Chyna Blandon MD [address] [place] [address] PCP - General 04/13/01 documented as of this encounter
--- OUTSIDE RECORDS SUMMARY | 2024-08-24 14:10 | XMS_ITS | Encounter Summary ---
Author Organization [facility] Address [address] [place] [address] Care Team Providers Care Gas Plant Dispatcher Name Role Phone Chyna Blandon MD Primary Care Provider [phone] Reason for Visit * Reason Onset Date Comments medication problems 12/12/2016 Encounter Details Date Type Department Care Team Description 12/12/2016 Telephone Adult Medicine [facility] [address] [place] [phone] Chyna Blandon MD [address] [place] [address] [phone] medication problems Social History Tobacco Use Types Packs/Day Years Used Date Smoking Tobacco: Former Cigarettes 0.5 4 Q uit: 05/11/1991 Smokeless Tobacco: Never Comments:quit 1991 Alcohol Use Standard Drinks/Week Comments Yes 0 (1 standard drink = 0.6 oz pur e alcohol) 3 drinks per mweek Sex Assigned at Date Recorded Not on file documented as of this encounter Miscellaneous Notes * Telephone Encounter - Franco Pemberton L.P.N. - 12/12/2016 10:54 AM EDT Spoke with patient he didn't go to PT Due to large co pay He is OOW Appt made with Adam SINHA for 9 AM on 01/15 He can try heat or ice Use OC pain reliever follow up Reinforced phone consultation and advice Reviewed with the patient S/S to watch for that would require immediate attention If symptoms worsen patient can call the triage nurse or go to the ER if needed can call 911 Patient states he/she is satisfied with information and homecare instructions he is able to verbalize the instructions given * Telephone Encounter - Nina Pisanoteau - 12/12/2016 10:42 AM EDT Symptoms patient is presenting: patient states that he was seen on 11/29/16 for his left shoulder pain. Patient sttaes that th medication is not working and would like to know if there is something else that he can do or take to help with the pain If pain or injury related was it due to an accident at work or from a motor vehicle accident? NO If yes, gather 3rd libertarian insurance information Date of accident/Injury: How long has patient had these symptoms?: PCP: Chyna Blandon Payor: YOHANATryouts / Plan: [employer] O F 1-8/$25 / Product Type: HMO [id number] documented in this encounter Plan of Treatment Not on file documented as of this encounter Visit Diagnoses Not on filedocumented in this encounter Care Teams Gas Plant Dispatcher Relationship Specialty Start Date End Date Chyna Blandon MD [address] [place] [address] PCP - General 04/13/01 documented as of this encounter
--- OUTSIDE RECORDS SUMMARY | 2024-08-24 14:10 | XMS_ITS | Encounter Summary ---
Author Organization [facility] Address [facility] [place] [address] Care Team Providers Care Retail Account Specialist Name Role Phone Chyna Blandon MD Primary Care Provider [phone] Encounter Details Date Type Department Care Team Description 06/18/2017 Orders Only Orthopedics-[address] [address] Alex Hinson PA-C Social History Tobacco Use [...] on filedocumented in this encounter Care Teams Retail Account Specialist Relationship Specialty Start Date End Date Chyna Blandon MD [address] [place] [phone] PCP - General 04/13/01 documented as of this encounter
== END 2024-08-24 13:00 | disposition home or self-care (01) ==
LOC: HO.HMCC 11:43
PROVIDERS: PCP Internal Medicine; Visit Provider Internal Medicine
DX: M25.562 Pain in left knee (principal); G47.30 Sleep apnea, unspecified

== ENCOUNTER 2024-08-24 11:42 | Outpatient (REF) | payer OTHER, SELFPAY ==
--- NOTE | ~2024-08-24 | XR_ITS ---
EXAMINATION: XR KNEE 1-2 VIEWS LEFT HISTORY: M25.562 - Pain in left knee COMPARISON: There are no prior studies available for comparison. FINDINGS: AP and lateral views of the left knee are submitted. Osseous mineralization is normal. There is no fracture or dislocation. The joint spaces are preserved. The soft tissues are unremarkable. There is no joint effusion. XR/XR knee LT 2V IMPRESSION: Unremarkable examination of the left knee. Electronically signed by: Devonte Monterroso MD 08/25/2024 09:17 AM EDT
--- OUTSIDE RECORDS SUMMARY | 2024-08-24 15:19 | XMS_ITS | Clinical Summary ---
Author Organization [facility] Address [facility] [place] [address] Care Team Providers Care Superintendent Power Name Role Phone Chyna Blandon MD Primary Care Provider [phone] Allergies Active Allergy Reactions Severity Noted Date Comments Levofloxacin 07/07/2017 Nerve pain Medications Medication Sig Dispensed Refills Start Date End Date Status ALBUTEROL SULFATE 108 (90 BASE) MCG/ACT Aero Soln Inhale 2 Puffs into the lungs every 4 hours as needed for Cough or Wheezing. 1 Inhaler 5 08/11/2016 Active loratadine (CLARITIN) 10 MG tablet Take 1 Tab by mouth daily. 30 Tab 5 08/23/2016 Active ondansetron (ZOFRAN) 4 MG tabletIndications:Di verticulitis of large intestine without perforation or abscess without bleeding,Left lower quadrant pain,Acute right-sided low back pain with right-sided sciatica,Morbid obesity (HCC) Take 1 Tab by mouth every 8 hours as needed for Nausea for up to 7 days. 30 tablet 0 07/07/2017 Active cyclobenzaprine (FLEXERIL) 10 MG tabletIndications:Di verticulitis of large intestine without perforation or abscess without bleeding,Left lower quadrant pain,Acute right-sided low back pain with right-sided sciatica,Morbid obesity (HCC) Take 1 Tab by mouth every 8 hours as needed for Muscle spasms (take with ibuprofen 600 mg po) for up to 10 days. Take one tablet by mouth every 8 hours, NEEDED WITH IBUPROFEN 30 tablet 0 07/09/2017 Active Active Problems Problem Noted Date Hypertriglyceridemia 09/13/2015 Subclinical hypothyroidism 09/13/2015 Elevated LFTs 09/13/2015 Snores 09/04/2015 Morbid obesity 09/04/2015 Peripheral edema 09/04/2015 FH: CAD (coronary artery disease): fathe r CABG 50 09/04/2015 Diverticulitis of large intestine 2014 Resolved Problems Problem Noted Date Resolved Date Fatigue 09/04/2015 03/25/2017 Backache, unspecified 08/25/2006 03/25/2017 Overview: Follows with Dr. Daniel, neurosurgery IMO update Immunizations Name Administration Dates Next Due Hepatitis B-2 dose(11-15yrs) 11/18/2001 Influenza (> 6 Months) 03/09/2013 Influenza Flu (PT Reported) 02/13/2017, 7,02/25/2014 PPD-RBMG 06/15/2006 TETANUS/DIPTHERIA (ADULT) 11/18/2001 Tdap 08/06/2012 Family History Medical History Relation Name Comments Diabetes Daughter 2 at age 19 CABG Father 50 Diabetes Maternal Grandmother Relation Name Status Comments Daughter 1 Daughter 2 Father Maternal Grandmother Social History Tobacco Use Types Packs/Day Years Used Date Smoking Tobacco: Former Cigarettes 0.5 4 Q uit: 05/11/1991 Smokeless Tobacco: Never Comments:quit 1991 Alcohol Use Standard Drinks/Week Comments Yes 0 (1 standard drink = 0.6 oz pur e alcohol) 3 drinks per mweek Sex Assigned at Date Recorded Not on file Last Filed Vital Signs Vital Sign Reading Time Taken Comments Blood Pressure 94/70 07/07/2017 3:03 PM EST Pulse 96 07/07/2017 3:03 PM EST Temperature 37.1 ??C (98.7 ??F) 07/07/2017 3:03 PM ES T Respiratory Rate 16 07/07/2017 3:03 PM EST Oxygen Saturation 98% 09/04/2015 12: 22 PM EDT Inhaled Oxygen Concentration - - Weight 132.4 kg (291 lb 12.8 oz) 07/07/2017 3:03 PM EST Height 177.8 cm (5' 10 ) 07/07/2017 3:03 PM EST Body Mass Index 41.87 07/07/2017 3:03 PM EST Plan of Treatment Health Maintenance Due Date Last Done Comments Covid-19 Vaccine (#1) 1974 TOBACCO CHECK/ADVISE 02/16/1992 BASELINE HEALTH EXAM 40-64 09/04/201709/04, 09/04/2015, 09/04/2015, Additional history exists CHOLESTEROL SCREENING 09/04/2020 09/05/2015 , 08/11/2012, 07/06/2003 DTAP/TDAP/TD (2 - Td or Tdap) 08/06/2022 08/06/2012 SHINGLES VACCINE (1 of 2) 02/16/2024 BMI CHECK/ADVISE 05/11/2024 03/25/2017, , 10/04/2014, Additional history exists COLON CANCER SCREENING 10/27/2024 10/27/2014 INFLUENZA (Season Ended) 2025 017, 05/29/2016, 02/25/2014, Additional history exists PNEUMOCOCCAL VACCINE FOR HIG H RISK PATIENTS (#1) 2039 Care Teams Superintendent Power Relationship Specialty Start Date End Date Chyna Blandon MD [address] [place] [address] [phone] PCP - General 04/13/01
--- OUTSIDE RECORDS SUMMARY | 2024-08-24 15:19 | XMS_ITS | Encounter Summary ---
Author Organization [facility] Address [address] [place] [address] Care Team Providers Care Landscape Crew Leader Name Role Phone Chyna Blandon MD Primary Care Provider [phone] Encounter Details Date Type Department Care Team Description 07/10/2017 Orders Only Adult Medicine [address] [address] Chyna Blandon MD [address] [place] [address] [phone] Social History Tobacco Use Types Packs/Day Years [...] on filedocumented in this encounter Care Teams Landscape Crew Leader Relationship Specialty Start Date End Date Chyna Blandon MD [address] [place] [address] [phone] PCP - General 04/13/01 documented as of this encounter
--- OUTSIDE RECORDS SUMMARY | 2024-08-24 15:19 | XMS_ITS | Encounter Summary ---
Author Organization [facility] Address [address] [place] [address] Care Team Providers Care Railroad Car Loader Name Role Phone Chyna Blandon MD Primary Care Provider [phone] Encounter Details Date Type Department Care Team Description 06/13/2014 Hospital Medical Records [address] [place] [address] Carli, Jeanne, DO Social History Tobacco Use [...] on filedocumented in this encounter Care Teams Railroad Car Loader Relationship Specialty Start Date End Date Chyna Blandon MD [address] [place], [place] [phone] PCP - General 04/13/01 documented as of this encounter
--- OUTSIDE RECORDS SUMMARY | 2024-08-24 15:19 | XMS_ITS | Encounter Summary ---
Author Organization [facility] Address [address] [place] [address] Care Team Providers Care Manager Document Control Name Role Phone Chyna Blandon MD Primary Care Provider [phone] Reason for Visit * Reason Onset Date Comments medication problems 12/12/2016 Encounter Details Date Type Department Care Team Description 12/12/2016 Telephone Adult Medicine [facility] [address] [place] [phone] Chyna Blandon MD [address] [place] [address] [phone] medication problems Social History Tobacco Use Types [...] vehicle accident? NO If yes, gather 3rd democrat insurance information Date of accident/Injury: How long has patient had these symptoms?: PCP: Chyna Blandon Payor: YOHANAVisedo / Plan: [employer] O F 1-8/$25 / Product Type: HMO [id number] documented in this encounter Plan of Treatment Not on file documented as of this encounter Visit Diagnoses Not on filedocumented in this encounter Care Teams Manager Document Control Relationship Specialty Start Date End Date Chyna Blandon MD [address] [place] [id number] PCP - General 04/13/01 documented as of this encounter
== END 2024-08-24 11:43 | disposition home or self-care (01) ==
LOC: HO.HMGCX 11:42
PROVIDERS: PCP Internal Medicine; Visit Provider Internal Medicine
DX: M25.562 Pain in left knee (principal); G47.30 Sleep apnea, unspecified
CPT/HCPCS: 73560; 96127

== ENCOUNTER → 2024-08-24 13:02 | Outpatient (BNV) | payer OTHER, SELFPAY | PROVIDERS: PCP Internal Medicine; Visit Provider Radiology Diagnostic Radiology | DX: M25.562 Pain in left knee (principal) | CPT/HCPCS: 73560 ==

== ENCOUNTER → 2024-11-08 15:49 | Outpatient (REF) | payer OTHER, SELFPAY | LOC: HO.SL 15:49 | PROVIDERS: PCP Internal Medicine; Visit Provider Internal Medicine | DX: G47.30 Sleep apnea, unspecified (principal) | CPT/HCPCS: 95806 ==

== ENCOUNTER → 2024-11-08 16:01 | Outpatient (BNV) | payer OTHER, SELFPAY | PROVIDERS: PCP Internal Medicine; Visit Provider Psychiatry & Neurology Neurology | DX: G47.33 Obstructive sleep apnea (adult) (pediatric) (principal) | CPT/HCPCS: 95806 ==

== ENCOUNTER 2024-11-22 07:06 | Outpatient (AMB) | payer OTHER, SELFPAY ==
--- OUTSIDE RECORDS SUMMARY | 2024-11-22 07:08 | XMS_ITS | Encounter Summary ---
Author Organization [facility] Address [facility] [place] [address] Care Team Providers Care Laborer Sawmill Name Role Phone Chyna Blandon MD Primary Care Provider [phone] Reason for Visit * Reason Onset Date Comments Testing 07/16/2017 re Cat Scan Encounter Details Date Type Department Care Team Description 07/16/2017 Telephone Radiology - [address] [address] Darius Díaz PA-C Testing (re Cat Scan) Social History Tobacco Use Types Packs/Day Years Used Date Smoking Tobacco: Former Cigarettes 0.5 4 Q uit: 05/11/1991 Smokeless Tobacco: Never Comments:quit 1991 Alcohol Use Standard Drinks/Week Comments Yes 0 (1 standard drink = 0.6 oz pur e alcohol) 3 drinks per mweek Sex Assigned at Date Recorded Not on file documented as of this encounter Miscellaneous Notes * Telephone Encounter - Rinku Heller - 07/16/2017 9:31 AM EST Marti, we contacted Wang to schedule his cat scan of abd/pelv. He stated he was feeling better and did not want CT. Therefore we are removing the order. Thank you, Radiology documented in this encounter Plan of Treatment Not on file documented as of this encounter Visit Diagnoses Not on filedocumented in this encounter Care Teams Laborer Sawmill Relationship Specialty Start Date End Date Chyna Blandon MD [address] [place] [address] PCP - General 04/13/01 documented as of this encounter
--- NOTE | 2024-11-22 07:23 | MHC.OFFWIV ---
Intake Vital Signs 11/22/24 07:24 Height 5 ft 10 in Weight 201 lb BMI 28.8 BP 120/84 Blood Pressure Location Rt brachial Position Sitting Pulse 83 Pulse Source Pulse Oximeter Temp 98.0 F Temp Source Oral Pulse Oximetry (%) 98 Oxygen Delivery Method Room Air Intake Visit Reasons: EP new tattoo, hot, red, painful, swelling Intake Note: presents with tattoo inflammation on left forearm, pain and warmth- obtained 6 days ago Patient Tobacco Use Status: Former Tobacco user Allergies levofloxacin (From LEVAQUIN) Allergy (Intermediate, Verified 11/22/24 07:25) NERVE PAIN Do you need a note to return to daycare/school/sports/work: No HPI HPI Comments History of Present Illness Details Patient is a 49yo M who presents with L arm tattoo infection Thursday afternoon he got the new tattoo 6/10 ache worse when arm is resting down or rotating forearm He had second skin on it and noticed it leaking out bottom on Subjective fever and chills last night Noticed increased redness/swelling Said it feels warm to palpation PFSH Medical History (Updated 11/22/24 @ 07:47 by Ambar Deluna PA-C) Diverticulosis Annual physical exam Vasectomy evaluation Obesity Impaired fasting blood sugar Surgical History Hx of colonoscopy History of hernia surgery Family History Father HTN (hypertension) Mother No problems noted. Other Substance use disorder Social History Housing: House Alcohol intake: current Alcohol intake frequency: a few times a month Patient Tobacco Use Status: Former Tobacco user Years Smoked: 2 e-Cigarette/Vaping Use: Never Used Second Hand Smoke Exposure: No service: No Current occupational status: employed Cognitive needs: No Hearing needs: No Vision needs: Yes Review of Systems Const Reports chills, Denies fatigue and Reports fever(s) Resp Denies cough and Denies wheezing (asthma at baseline) Musc Denies tingling Skin/Breast Reports erythema and Reports skin pain Neuro Denies tingling and Denies paresthesias Endo Denies fatigue Aller/Immun Denies wheezing (asthma at baseline) Physical Exam Vital Signs: Last Vital Signs Temp 98.0 F 11/22/24 07:24 Pulse 83 11/22/24 07:24 BP 120/84 11/22/24 07:24 Pulse Ox 98 11/22/24 07:24 Oxygen Delivery Method Room Air 11/22/24 07:24 BMI result Body Mass Index 28.8 General: Non-toxic, NAD. Speaking full sentences. Skin: Warm dry throughout L forearm has one large approx 4inch x 4 inch box tattoo with green clovers along inside with a small date below it. There is surrounding erythema and warmth to border of tattoo. No drainage. No induration or fluctuance. No other extremity distal or proximal edema noted. Forearms relatively equal bilaterally in size/shape Eye: EOMI Cardiac: LUE Radial pulse intact MSK: Full ROM extremities. Neurology: Alert. No aphasia or facial droop. Gait without abnormality Psych: Good mood and affect Assessment & Plan Assessment & Plan (1) Cellulitis of left arm: Code(s): L03.114 - Cellulitis of left upper limb Plan: Patient seen and evaluated. Keep arm elevated Keep clean with non-scented soap and water Bactrim with food; avoid alcohol F/U with PCP. Call with concerns Patient gave verbal understanding and had no additional questions or concerns at time of discharge All questions answered Medications: New sulfamethoxazole-trimethoprim 800-160 mg (Bactrim DS) 1 tab PO BID 14 tabs 0RF Coding Level of Care Code Est Pt Level 3 (25150) Diagnoses Cellulitis of left arm L03.114
[2024-11-22 07:24] VITALS: BP 120/84; PULSE 83; TEMP 36.7; O2SAT 98; BMI 28.8
== END 2024-11-22 08:51 | disposition home or self-care (01) ==
PROVIDERS: PCP Internal Medicine; Visit Provider Physician Assistant
DX: L03.114 Cellulitis of left upper limb (principal)

== ENCOUNTER 2025-04-04 14:34 | Outpatient (AMB) | payer OTHER, SELFPAY ==
[2025-04-04 14:42] VITALS: BP 144/92; PULSE 96; O2SAT 98; BMI 43.7
--- NOTE | 2025-04-04 14:42 | A.OFFVIS_ITS ---
Vital Signs 04/04/25 14:42 Height 5 ft 10 in Weight 304 lb 4 oz BMI 43.7 BP 144/92 H Blood Pressure Location Rt brachial Position Sitting Pulse 96 Pulse Source Pulse Oximeter Pulse Oximetry (%) 98 Oxygen Delivery Method Room Air Intake Visit Reasons: INP-TIARA Need insurance card Intake Note: Patient presents [employer] TIARA. HST in Chart(AHI-24, KEITH-71%, APAP 5-20cm) Accompanied by: Self / Same As Patient Allergies levofloxacin (From LEVAQUIN) Allergy (Intermediate, Verified 04/04/25 14:45) NERVE PAIN HPI Comments Details: 50 year old male presents for an evaluation of TIARA he is referred to us by his pcp. HST c/w moderate TIARA, AHI is 24/hr, oxygen Nadirs to 71%. Will start him on APAP 5-20cm and monitor him for compliance. Full face mask AirFit F30i with chin straps. Interval med history Covid March 2025, h/o asthma takes Spiriva, Dulera and albuterol rescue inhaler, today his BP is elevated 144/92. He continues to snore and gasp for air for years now. He sleeps in his recliner and takes cannabis chocolates for pain, this helps him stay asleep. He is unable to shut off his intrusive thoughts. He had a low back injury in 2007, now chronic bilateral, radiating pain with edema from L1/ to S1 and can not sleep in a flat bed, feels consistently short of breath. He has heartburn at night, and sleeping in the recliner helps him to sleep 2-4 hours through the night. He did not tolerate omeprazole well and then started Tums along with diet and lifestyle modifications. Mood is low, he has anxiety, lost his job, went back to school for a certification, now is disabled, and he is the main care provider. Memory is stable. He denies morning headaches, dizziness, gait and balance difficulties, denies RLS, cramps and spasm. FH + dad 73 AD PFSH Medical History Diverticulosis Annual physical exam Vasectomy evaluation Obesity Impaired fasting blood sugar Surgical History Hx of colonoscopy History of hernia surgery Family History Father HTN (hypertension) Mother No problems noted. Other Substance use disorder Social History Housing: House Alcohol intake: current Alcohol intake frequency: a few times a month Patient Tobacco Use Status: Former Tobacco user Years Smoked: 2 e-Cigarette/Vaping Use: Never Used Second Hand Smoke Exposure: No service: No Current occupational status: employed Cognitive needs: No Hearing needs: No Vision needs: Yes Physical Exam Vital Signs: Last Vital Signs Pulse 96 04/04/25 14:42 BP 144/92 H 04/04/25 14:42 Pulse Ox 98 04/04/25 14:42 Oxygen Delivery Method Room Air 04/04/25 14:42 BMI result Body Mass Index 43.7 Const General: cooperative, comfortable and no acute distress Nutritional Appearance: obese Orientation/consciousness: patient oriented x3 HEENT Face and sinus: Yes face symmetric Teeth and gingiva: other (mallampti score 4) Eyes Pupils: Equal, round and reactive pupils present Neck Neck: Yes full ROM Resp Effort & Inspection: normal respiratory effort and able to speak in complete sentences Neuro General: patient oriented x3 and moves all extremities Cranial nerves: Yes Equal, round and reactive pupils present, Yes Normal facial strength present, Yes Midline tongue present, Yes Ability to bilaterally rotate head present and Yes Ability to bilaterally elevate shoulders present Cognition (Neuro): normal cognition Gait exam (Neuro): Normal gait present Motor exam (neuro): 5/5 motor strength present throughout and Normal motor muscle tone present throughout Psych Appearance: well kempt Thought process: Normal thought process present Results Reviewed Results Reviewed: Labs reviewed with pt. HST c/w moderate TIARA, AHI is 24/hr, oxygen Nadirs to 71%. Will start him on APAP 5-20cm and monitor him for compliance. Full face mask AirFit F30i with chin straps. Assessment & Plan Assessment & Plan (1) TIARA (obstructive sleep apnea): Code(s): G47.33 - Obstructive sleep apnea (adult) (pediatric) Category: Medical (2) Sleep apnea: Comment: Severe obstructive sleep apnea 11/2024 referred to sleep Medicine Code(s): G47.30 - Sleep apnea, unspecified Category: Medical Qualifiers: Sleep apnea type: obstructive Qualified Code(s): G47.33 - Obstructive sleep apnea (adult) (pediatric) (3) RLS (restless legs syndrome): Code(s): G25.81 - Restless legs syndrome Category: Medical Plan CPAP rx for TIARA moderate AHI is 24/hr and o2 desaturation to 71% will start him on APAP [id number] and monitor for compliance. Will f/u with Nocturnal Hypoxemia if not corrected with cpap use for overnight study in lab. Labs reviewed with pt. F/U in 3 months Patient Instructions: Sleep Hygiene provided: set a scheduled bedtime and wake time to help regulate the circadian rhythm and balance the release of pituitary hormones. Sleep in a dark room, temperatures below 68 degrees, and no devices n bed. Limit caffeinated products 6 hours prior to bed, and limit fluids 2-4 hours prior to bed. Gentle night yoga, diffusing essential oils, and playing soft music can be relaxing. Coding Level of Care Code New Pt Level 4 (18244) Diagnoses TIARA (obstructive sleep apnea) G47.33 Obstructive sleep apnea syndrome G47.33 Sleep apnea type: obstructive RLS (restless legs syndrome) G25.81
== END 2025-04-04 15:19 | disposition home or self-care (01) ==
LOC: HO.HSMS 14:35
PROVIDERS: PCP Internal Medicine; Visit Provider Physician Assistant Medical
DX: G47.33 Obstructive sleep apnea (adult) (pediatric) (principal); G25.81 Restless legs syndrome
CPT/HCPCS: 99204